=== PATIENT | female | born 1940 | race Caucasian/White ===

== ENCOUNTER → 2017-05-17 | Outpatient (CLI) | payer MEDICARE, BC ==
[~2017-05-17] MED LIST: BUPR-86 PO; CORE3.12 PO; FE FCAP; FERATE PO; FISH1000 PO; LISI-363 PO; LOVA40TA PO; MULT1TAB46; PRED-1 PO; ROSU40 PO; VITA100018 PO
--- NOTE | 2017-05-28 10:17 | RSPPFT ---
DATE OF PROCEDURE: 05/17/17 COMMENTS: Spirometry demonstrates an FEV1 of 1.1 at 57% of predicted, FVC of 2.0 at 79%, FEF 25-75 is 14%. Post-bronchodilator study demonstrated no significant change. Lung volumes demonstrated reduced TLC indicating restriction. Airways resistance is increased. Diffusion capacity is mildly reduced. Flow volume loops indicate an obstructive pattern. IMPRESSION: 1. Moderate obstructive disease. 2. Additional mild restrictive disease. 3. No significant change following use of bronchodilator. 4. Mild loss in diffusion capacity.
== END ==
LOC: PHRSP 10:09
DX: R05 Cough (principal); R06.00 Dyspnea, unspecified
CPT/HCPCS: 94060; 94726; 94729

== ENCOUNTER 2017-08-13 09:34 | Day surgery (SDC) | payer MEDICARE, BC ==
[~2017-08-13] VITALS: Ht 157.5 cm; Wt 57.7 kg
[2017-08-13] VITALS (9 sets, daily range): BP systolic 175–198; BP diastolic 80–99; PULSE 65–78; RESP 20; TEMP 97.7–98.2; O2SAT 90–99
[2017-08-13] MEDS ORDERED: NIVO1INJ (10:10)
[2017-08-13] MEDS ORDERED: THYR30TA4 (10:10)
[2017-08-13] MEDS ORDERED: VITATAB11 (10:10)
[2017-08-13] MEDS ORDERED: CHOL10008 (10:10)
[2017-08-13] MEDS ORDERED: ROSU1TAB4 PO (10:10)
[2017-08-13] MEDS ORDERED: SODIUM CHLOR 0.9% 1000 ML IV SCH (10:15)
[2017-08-13] MEDS ORDERED: IMPLANTED VASCULAR ACCESS DEVICE/PORT - SODIUM CHLORIDE FLUSH PRN IV FLUSH (10:30)
[2017-08-13] MEDS ORDERED: IMPLANTED VASCULAR ACCESS DEVICE/PORT - SODIUM CHLORIDE FLUSH IV FLUSH SCH (10:30)
[2017-08-13] MEDS ORDERED: DIAZEPAM 5 MG TAB PO ONE (10:45)
[2017-08-13 11:08] LABS: INTERNATIONAL NORMALIZED RATIO 1.1 RATIO; PROTHROMBIN TIME - PATIENT 11.2 SEC (9.8-11.6)
[2017-08-13] MEDS ORDERED: LIDOCAINE HCL 1% 20 ML VIAL ONE (12:35)
[2017-08-13] MEDS ORDERED: MIDAZOLAM HCL 2 MG/2 ML VIAL ONE ×2 (12:56→13:26)
[2017-08-13] MEDS ORDERED: THROMBIN (TOPICAL) 5,000 UNIT VIAL ONE ×2 (13:39→13:59)
[2017-08-13] MEDS ORDERED: LABETALOL HCL 100 MG/20 ML VIAL ONE (13:55)
[2017-08-13] MEDS ORDERED: ONDANSETRON HCL 4 MG/2 ML VIAL ONE (14:02)
--- NOTE | 2017-08-13 14:12 | PD.RAD ---
Post CT Procedure Prog Note Pre Procedure Diagnosis: (1) Renal carcinoma Post Procedure Diagnosis: (1) Renal carcinoma Procedure Date: Aug 13, 2017 Supervising Radiologist: Dante Allen Anesthesia: Conscious Sedation Plan of Activity Patient to Unit: ROPU Patient Condition: Good See PACS Report for procedural detail/treatment Dante Allen MD Aug 13, 2017 14:12
[2017-08-13] MEDS ORDERED: PILL SPLITTER OTHER PRN (14:15)
[2017-08-13] MEDS ORDERED: HYDROmorphone HCL 2 MG TAB PO PRN (14:15)
[2017-08-13] MEDS ORDERED: hydrALAZINE HCL 20 MG/ML VIAL IV ONE (15:30)
[2017-08-13] MEDS ORDERED: MORPHINE SULFATE 2 MG/ML INJ IV PUSH ONE (16:45)
--- NOTE | 2017-08-13 17:05 | RADRPT ---
EXAM DATE/TIME: 08/13/2017 13:08 [facility] COMPARISON: No previous studies available for comparison. INDICATIONS : History of renal cell carcinoma with osseous metastatic disease. Enlarging mixed T7 lesion while emelyn ining osseous lesions are stable. Therefore, biopsy has been requested. SEDATION TIME: 90 minutes BIOPSY SITE: T6 MEDICATION(S): 1.) 3 midazolam (Versed) IV 2.) 150 fentanyl (Sublimaze) DEVICE(S): 1.) 11 gauge On-Control needle MEDICAL HISTORY : Renal cell carcinoma. SURGICAL HISTORY : Nephrectomy, right. ENCOUNTER: Initial ACUITY: 1 day PAIN SCORE: 0/10 LOCATION: Bilateral chest A total of one core specimen(s) were obtained and sent to the laboratory for pathologic evaluation. PROCEDURE: 1. CT guided bone deep biopsy. 2. Conscious sedation with continuous EKG and oximetry monitoring. 3. EKG and oximetry remained stable throughout the procedure. Prior to the procedure informed consent was obtained. Any appropriate prior imaging studies were rev iewed. Using automated exposure control and adjustment of the mA and/or kV according to patient size, radiat ion dose was kept as low as reasonably achievable to obtain optimal diagnostic quality images. DICOM format image data is available electronically for review and comparison. The site was prepped in a sterile fashion. Full sterile technique was used, including cap, mask, neyda rile gloves and gown and a large sterile sheet. Hand hygiene and 2% chlorhexidine and/or betadine/al cohol prep was utilized per protocol for cutaneous antisepsis. The skin and subcutaneous tissues wer e infiltrated with local anesthetic solution. With CT guidance the previously identified target was localized. Biopsy was performed using the presc ribed needle as above. Thrombin infused Gelfoam was injected through the needle in a prolonged contro lled retraction. Adequate hemostasis was obtained with compression at the puncture site. Follow-up CT scan reveals no hemorrhage. The patient tolerated the procedure well and there were no complications. The patient was returned to the Radiology Outpatient Unit in stable condition. CONCLUSION: Uncomplicated CT guided biopsy. Dante Allen MD on August 13, 2017 at 17:01 Board Certified Radiologist. This report was verified electronically.
== END 2017-08-13 18:10 | disposition short-term general hospital (02) ==
LOC: HRAD 09:34 → HRIP 09:37 → HRAD 18:10
PROVIDERS: ATTEND Internal Medicine Hematology
DX: C79.51 Secondary malignant neoplasm of bone (principal); C64.9 Malignant neoplasm of unspecified kidney, except renal pelvis; I12.9 Hypertensive chronic kidney disease with stage 1 through stage 4 chronic kidney disease, or unspecified chronic kidney disease; N18.9 Chronic kidney disease, unspecified; E78.5 Hyperlipidemia, unspecified; D64.9 Anemia, unspecified; I31.3 Pericardial effusion (noninflammatory)
CPT/HCPCS: 20225; 77012; 85610; 85730; 88307; 88311; 88341; 88342; 99152; 99153; J0360; J2250; J2270; J2405; J3010

== ENCOUNTER 2017-08-13 18:27 | Emergency (ER) | payer MEDICARE, BC ==
[~2017-08-13 18:27] MED LIST changes: +CHOL10008; +NIVO1INJ; +ROSU1TAB4 PO; +THYR30TA4; +VITATAB11
[2017-08-13 18:30] VITALS: BP 186/84; PULSE 73; RESP 15; TEMP 98; O2SAT 98
[2017-08-13 18:33] VITALS: BP 175/82; PULSE 75; RESP 16; TEMP 97.4
--- NOTE | 2017-08-13 18:59 | PD ---
HPI Chief Complaint: Pain: Acute or Chronic Time Seen by Provider: 18:43 Travel History International Travel<30 days: No Contact w/Intl Traveler<30days: No Traveled to known affect area: No History of Present Illness HPI 77-year-old female complains of upper back pain. Patient has history of lung cancer and metastatic kidney cancer. Patient status post CT-guided thoracic spine T6 biopsy this afternoon. Patient states that she is not having pain upper back post procedure. Patient was sent to ED for evaluation. Patient states the pain is sharp pain localized to the upper back area. Patient denies any pain radiation. Patient denies any palpitation or diaphoresis. Patient denies any fever chills cough and congestion. Patient states that the pain is not worse with deep inspiration. On a scale of 1-10 the pain is a 9. Patient was given morphine for pain prior to arriving to the ED. PFSH Past Medical History Cancer: Yes (LUNG, KIDNEY, bone cancer) Cardiovascular Problems: Yes High Cholesterol: Yes Chemotherapy: No Diabetes: No Endocrine: No Genitourinary: Yes Hepatitis: No Immune Disorder: No Musculoskeletal: Yes (Back pain, bone cancer) Neurologic: Yes Psychiatric: No Reproductive: No Respiratory: Yes Immunizations Current: Yes Migraines: Yes Radiation Therapy: No Thyroid Disease: Yes Past Surgical History Abdominal Surgery: No AICD: No Cardiac Surgery: No Genitourinary Surgery: Yes (RIGHT NEPHRECTOMY) Gynecologic Surgery: Yes ( 1975) Joint Replacement: No Pacemaker: No Thoracic Surgery: No Social History Tobacco Use: No Substance Use: No Allergies-Medications (Allergen,Severity, Reaction): Coded Allergies: ferrous fumarate (Unverified Allergy, Unknown, 08/13/17) ferrous sulfate (Unverified Allergy, Unknown, 08/13/17) ferumoxytol (Unverified Allergy, Unknown, 08/13/17) iron (Unverified Allergy, Unknown, 08/13/17) multivitamin infusion, adult no.4 with vitamin K (Unverified Allergy, Unknown, 08/13/17) multivitamin with iron,other minerals (Unverified Allergy, Unknown, ) Reported Meds & Prescriptions Reported Meds & Active Scripts Active Reported Opdivo (Nivolumab) 40 Mg/4 Ml Inj Vitamin B Complex (B-Complex Vitamins) 1 Tab Vitamin D3 (Cholecalciferol) 1,000 Unit Cap 1,000 Units DAILY Rosuvastatin (Rosuvastatin Calcium) 5 Mg Tab 5 Mg PO DAILY Thyroid (Thyroid,Pork) 30 Mg Tablet Review of Systems General / Constitutional: No: Fever Eyes: No: Visual changes HENT: No: Headaches Cardiovascular: No: Chest Pain or Discomfort Respiratory: No: Shortness of Breath Gastrointestinal: No: Abdominal Pain Genitourinary: No: Dysuria Musculoskeletal: No: Pain Skin: No Rash Neurologic: No: Weakness Psychiatric: No: Depression Endocrine: No: Polydipsia Hematologic/Lymphatic: No: Easy Bruising Physical Exam Narrative GENERAL: Well-nourished, well-developed patient. SKIN: Focused skin assessment warm/dry. HEAD: Normocephalic. EYES: No scleral icterus. No injection or drainage. NECK: Supple, trachea midline. No JVD or lymphadenopathy. CARDIOVASCULAR: Regular rate and rhythm without murmurs, gallops, or rubs. RESPIRATORY: Breath sounds equal bilaterally. No accessory muscle use. GASTROINTESTINAL: Abdomen soft, non-tender, nondistended. MUSCULOSKELETAL: No cyanosis, or edema. BACK: Patient has moderate tenderness on palpation around the biopsy site of the upper back, without obvious deformity. Mild soft tissue swelling noted. No ecchymosis noted. No active bleeding. No CVA tenderness. Data Data Last Documented VS Vital Signs Date Time Temp Pulse Resp B/P (MAP) Pulse Ox O2 Delivery O2 Flow Rate FiO2 08/13/17 18:33 97.4 75 16 175/82 (113) 08/13/17 18:30 98 Orders Orders Chest, Single Ap (08/13/17 18:51) Ed Discharge Order (08/13/17 20:20) MDM Medical Decision Making Medical Screen Exam Complete: Yes Emergency Medical Condition: Yes Interpretation(s) Last Impressions Chest X-Ray 08/13/17 0237 Signed Impressions: Service Date/Time: Sunday, August 13, 2017 19:06 - CONCLUSION: 1. No pneumothorax. Cardiomegaly. Znmakr-q-Npud in superior vena cava. Mike Garcia MD Differential Diagnosis Differential diagnosis including hematoma, bone pain, hemopneumothorax. Narrative Course 77-year-old female with upper back pain. Status post thoracic spine biopsy for metastatic kidney CA this afternoon. Diagnosis Primary Impression: Back pain Qualified Codes: M54.6 - Pain in thoracic spine Patient Instructions: General Instructions Additional Instructions: Tylenol for pain. Follow-up with personal physician. Return if worse. Med/Other Pt SpecificInfo: No Change to Meds Disposition: 01 DISCHARGE HOME Condition: Stable Javi Banuelos MD Aug 13, 2017 18:59
--- NOTE | 2017-08-13 19:54 | RADRPT ---
EXAM DATE/TIME: 08/13/2017 19:06 [facility] COMPARISON: No previous studies available for comparison. INDICATIONS : Upper back pain. Post spine biopsy today. MEDICAL HISTORY : Renal cell carcinoma. SURGICAL HISTORY : Nephrectomy, right. Infusaport. ENCOUNTER: Initial ACUITY: 1 day PAIN SCORE: 10/10 LOCATION: Bilateral chest FINDINGS: A single view of the chest demonstrates right Yqicty-n-Yqpy in superior vena cava. Minimal basilar at electasis. Cardiomegaly. No significant effusion. No pneumothorax. Postop partial resection left lung . CONCLUSION: 1. No pneumothorax. Cardiomegaly. Nbulpw-q-Pwfo in superior vena cava. Mike Garcia MD on August 13, 2017 at 19:51 Board Certified Radiologist. This report was verified electronically.
== END 2017-08-13 20:54 | disposition home or self-care (01) ==
LOC: NEPD 18:27
DX: M54.6 Pain in thoracic spine (principal); C34.90 Malignant neoplasm of unspecified part of unspecified bronchus or lung; C79.00 Secondary malignant neoplasm of unspecified kidney and renal pelvis
CPT/HCPCS: 71045; 99283

== ENCOUNTER → 2017-12-27 | Outpatient (CLI) | payer MEDICARE, BC ==
[~2017-12-27] MED LIST changes: -BUPR-86 PO; -CORE3.12 PO; -FE FCAP; -FERATE PO; -FISH1000 PO; -LISI-363 PO; -LOVA40TA PO; -MULT1TAB46; -PRED-1 PO; -ROSU40 PO; -VITA100018 PO
[2017-12-27 08:36] LABS: AUTOMATED NEUTROPHIL # 4.3 TH/MM3 (1.8-7.7); BASOPHIL % 0.4 % (0.0-2.0); EOSINOPHIL # 0.1 TH/MM3 (0-0.4); EOSINOPHIL % 1.6 % (0.0-4.0); HEMATOCRIT 35.5 % (35.0-46.0); HEMOGLOBIN 11.6 GM/DL (11.6-15.3); LYMPH % 8.2 % (9.0-44.0); LYMPHOCYTE # 0.5 TH/MM3 (1.0-4.8); MEAN CELL VOLUME 88.4 FL (80.0-100.0); MEAN CORPUSCULAR HEMOGLOBIN 28.8 PG (27.0-34.0); MEAN CORPUSCULAR HGB CONC 32.5 % (32.0-36.0); MEAN PLATELET VOLUME 8.9 FL (7.0-11.0); MONO % 11.9 % (0.0-8.0); MONOCYTE # 0.7 TH/MM3 (0-0.9); NEUT % 77.9 % (16.0-70.0); PLATELET COUNT 228 TH/MM3 (150-450); RED BLOOD COUNT 4.02 MIL/MM3 (4.00-5.30); RED CELL DISTRIBUTION WIDTH 14.4 % (11.6-17.2); WHITE BLOOD COUNT 5.6 TH/MM3 (4.0-11.0)
[2017-12-27 08:49] LABS: PROTHROMBIN TIME - PATIENT 10.6 SEC (9.8-11.6)
[2017-12-27 09:02] LABS: BILIRUBIN, URINE NEG (NEG); BLOOD, URINE SMALL (NEG); GLUCOSE,URINE NEG (NEG); KETONE, URINE NEG (NEG); NITRITE,URINE NEG (NEG); SQUAMOUS EPITHELIAL CELL URINE 2 /hpf (0-5); URINE COLOR YELLOW (YELLW/STRAW); URINE LEUKOCYTE ESTERASE MOD (NEG)
[2017-12-27 09:16] LABS: ALBUMIN 3.7 GM/DL (3.4-5.0); BICARBONATE 25.9 MEQ/L (21.0-32.0); BLOOD UREA NITROGEN 29 MG/DL (7-18); CALCIUM 9.1 MG/DL (8.5-10.1); CHLORIDE 105 MEQ/L (98-107); CREATININE 1.89 MG/DL (0.50-1.00); GLOMERULAR FILTRATION RATE 26 ML/MIN (>89); GLUCOSE,FASTING 81 MG/DL (74-99); SODIUM (NA) 140 MEQ/L (136-145)
[2017-12-27 09:18] LABS: AST (GOT) 14 U/L (15-37)
[2017-12-27 09:21] LABS: ALKALINE PHOSPHATASE 95 U/L (45-117); ALT (GPT) 13 U/L (10-53); TOTAL BILIRUBIN ADULT 0.4 MG/DL (0.2-1.0); TOTAL PROTEIN 7.2 GM/DL (6.4-8.2)
--- NOTE | 2017-12-27 09:56 | RADRPT ---
EXAM DATE: 12/27/2017 9:04 AM EDT AGE/SEX: 77 years / Female INDICATIONS: Evaluate for pneumonia, pneumothorax or communicable disease. Pre surgery back surgery CLINICAL DATA: This is the patient's initial encounter. Patient reports that signs and symptoms have been present for 1 day and indicates a pain score of 0/10. MEDICAL/SURGICAL HISTORY: Hypertension. Cardiovascular disease. Renal disease. Right kidney removed . COMPARISON: [facility], CT SIMULATION, 09/04/2017. . FINDINGS: No new focal pleural or parenchymal opacities. Stable right IJ Ekobqa-c-Jjvh with tubing in the proxi mal SVC. Surgical clips in the region of the AP window and left axilla. Cardiac silhouette remains mi ldly enlarged. Redemonstration of osseous abnormality involving the right lower ribs. There is a merle re T6 compression fracture similar to prior PET/CT exam. CONCLUSION: 1. Redemonstration of T6 osseous metastasis. 2. Compensated cardiomegaly. 3. No acute abnormality or significant interval change. Electronically signed by: Dante Allen MD 12/27/2017 9:55 AM EDT
--- NOTE | 2017-12-27 19:20 | EKG ---
Date Performed: 12/27/2017 Time Performed: 08:12:25 PTAGE: 77 years EKG: Sinus rhythm POSSIBLE LEFT ATRIAL ENLARGEMENT POSSIBLE ANTERIOR MYOCARDIAL INFARCTION, OF INDETERMINATE AGE ABNOR MAL ECG PREVIOUS TRACING :02/07/2013 @13.34 Since the previous tracing, no significant change noted DOCTOR: Momo Torres Interpretating Date/Time 12/27/2017 19:20:15
== END ==
LOC: CPRE 07:44
PROVIDERS: ATTEND Neurological Surgery
DX: Z01.810 Encounter for preprocedural cardiovascular examination (principal); Z01.811 Encounter for preprocedural respiratory examination; Z01.812 Encounter for preprocedural laboratory examination; C79.51 Secondary malignant neoplasm of bone; R94.31 Abnormal electrocardiogram [ECG] [EKG]; R82.90 Unspecified abnormal findings in urine
CPT/HCPCS: 36415; 71046; 80053; 81001; 85025; 85610; 85730; 87086; 87640; 87641; 93005

== ENCOUNTER 2018-01-04 05:57 | Inpatient (IN) ==
[2018-01-04] MEDS ORDERED: Chlorhexidine Gluconate 2% 1 Pack (2 Cloths) TOPICAL SCH (06:30)
[2018-01-04] MEDS ORDERED: Metoprolol Tartrate 25 MG Tablet PO SCH (06:30)
[2018-01-04] MEDS ORDERED: Vancomycin Inj 1 GM/200 ML PIGGYBACK IV.SIG PRN (06:45)
[2018-01-04] MEDS ORDERED: Sodium Chlor 0.9% Inj 500 ML IV.SIG SCH (07:00)
[2018-01-04] MEDS ORDERED: Sod Chloride 0.9% Inj 1,000 ML IV.SIG SCH (07:00)
[2018-01-04] MEDS ORDERED: Propofol Inj 500 MG/50 ML Vial ONE (07:14)
[2018-01-04] MEDS ORDERED: Artificial Tears Opth Oint 3.5 GM Tube ONE (07:15)
[2018-01-04] MEDS ORDERED: Bupivacaine/Epinephrine 0.5% Inj 50 ML Vial ONE (07:28)
[2018-01-04] MEDS ORDERED: Heparin - SQ 10,000 UNITS/ML Vial SQ ONE (07:28)
[2018-01-04] MEDS ORDERED: Thrombin Topical Soln 5,000 UNIT Vial TOPICAL ONE (07:29)
[2018-01-04] MEDS ORDERED: ceFAZolin 2 GM Premix Inj 2 GM/50 ML PIGGYBACK IV.SIG ONE ×2 (07:29→13:14)
[2018-01-04] MEDS ORDERED: Gelatin Size 100 Topical Foam ONE (07:29)
[2018-01-04 07:58] LABS: Bilirubin,Urine Negative (Negative); Clarity,Urine Clear (Clear); Color,Urine Straw (Yellw/Straw); Glucose,Urine (UA) Negative (Negative); Leukocyte Esterase,Urine Negative (Negative); Nitrite,Urine Negative (Negative); Specific Gravity,Urine 1.009 (1.002-1.035)
[2018-01-04] MEDS ORDERED: Aluminum/Magnesium/Simethacone Susp 30 ML UDC PO PRN (09:01)
[2018-01-04] MEDS ORDERED: Labetalol HCl Inj 100 MG/20 ML Vial IV.PUSH PRN (09:01)
[2018-01-04] MEDS ORDERED: Bisacodyl 10 MG Supp RECTAL PRN (09:01)
[2018-01-04] MEDS ORDERED: Naloxone Inj 0.4 MG/ML Vial IV.PUSH PRN (09:10)
[2018-01-04] MEDS ORDERED: HYDROmorphone PCA Inj 6 MG/30 ML PCA.VIAL PCA PRN (09:10)
[2018-01-04 09:12] LABS: ABG Base Excess -0.6 mmol/L (-2-2); ABG PCO2 34 mmHg (38-42); ABG PO2 424 mmHG (61-120)
[2018-01-04] MEDS ORDERED: Tranexamic Acid Inj 1,000 MG/10 ML Ampul ONE (10:56)
[2018-01-04 11:12] LABS: ABG Base Excess -3.3 mmol/L (-2-2); ABG PCO2 32 mmHg (38-42); ABG PO2 280 mmHG (61-120)
[2018-01-04] MEDS ORDERED: Lidocaine PF 1% Inj 5 ML Syringe INFILTRATN ONE (12:00)
[2018-01-04] MEDS ORDERED: Phenylephrine/NS 1000 MCG/10ML Syringe IV.PUSH ONE (12:00)
[2018-01-04] MEDS ORDERED: Glycopyrrolate Inj 1 MG/5 ML Syringe IV.PUSH ONE (12:00)
[2018-01-04 12:46] LABS: ABG Base Excess -5.5 mmol/L (-2-2); ABG PCO2 35 mmHg (38-42); ABG PO2 294 mmHG (61-120)
[2018-01-04] MEDS ORDERED: Sodium Bicarbonate 8.4% Inj 50 MEQ/50 ML Syringe ONE (12:49)
[2018-01-04 12:55] LABS: Hematocrit 34.7 % (35.0-46.0); Hemoglobin 11.7 gm/dL (11.6-15.3); Mean Corpuscular HGB Conc 33.7 % (32.0-36.0); Mean Corpuscular Hemoglobin 30.2 pg (27.0-34.0); Mean Corpuscular Volume 89.6 fL (80.0-100.0); Mean Platelet Volume 8.8 fL (7.0-11.0); Platelet Count 152 th/mm3 (150-450); Red Blood Count 3.88 mil/mm3 (4.00-5.30); Red Cell Distribution Width 14.4 % (11.6-17.2); White Blood Count 5.1 th/mm3 (4.0-11.0)
[2018-01-04] MEDS ORDERED: Morphine Inj 4 MG/ML Vial ONE (14:25)
[2018-01-04] MEDS ORDERED: fentaNYL Citrate Inj 100 MCG/2 ML Ampul ONE (14:25)
[2018-01-04] MEDS: Sod Chloride 0.9% Inj 1,000 ML IV.CONT SCH ×2 (14:32→20:18)
--- NOTE | 2018-01-04 14:48 | P.CONCC ---
History of Present Illness Service: Critical care medicine Consult date: 01/03/18 Requesting Physician: Odell Dela Cruz Reason for Consult: Critical care management Primary Care Provider: Young Swanson DO Family Provider: Young Swanson DO Chief Complaint: Back pain History of Present Illness: This is a 77-year-old female. Date of admission 01/04/2018. Date of consultation 01/04/2018. 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 Richards 2012, renal cell carcinoma with metastases to the spine undergoing radiation therapy. She is on Nivolumab every 2 weeks for her renal cell carcinoma. She also has history of chronic pain syndrome, hypertension, hyperlipidemia, sinus bradycardia, gastroesophageal reflux disease and hypothyroidism. Patient was seen by Dr. Dela Cruz for pain/unstable T-spine as an outpatient. Today, the patient underwent a T6 laminectomy with ORIF of fractures T4 through 8 with internal fixation using transpedicular screws and rods. 3000 cc crystalloid. 3 units PRBCs. 850 EBL. 800 cc urine output. Patient has been extubated is currently seen in PACU he was medically stable in sinus bradycardia. Review of Systems unobtainable due to mental status PMFSH - History History Provided By: Patient - Medical History Medical History: Medical History (Last Reviewed 01/04/18 @ 14:43 by Mariano Chacon MD) Bradycardia Chronic GERD Chronic pain Hypertension Hypothyroidism Metastasis Port catheter in place Renal adenocarcinoma Small cell lung cancer, left lower lobe - Surgical History Surgical History: Surgical History (Last Updated 01/04/18 @ 14:43 by Mariano Chacon MD) History of total knee arthroplasty History of lobectomy of lung History of nephrectomy Previous back surgery - Family History Family History: Family History (Last Updated 01/04/18 @ 14:43 by Mariano Chacon MD) Other Family history of lung cancer - Tobacco History Second Hand Smoke Exposure: Yes Tobacco Use In Past 30 Days: No Smoking Status: Never smoker - Alcohol History How Often Do You Have a Drink Containing Alcohol: Never - Substance Use History Substance History: No History of Abuse - Travel History History of Recent Travel: No Recent Travel in the [place] Within the Last 8 Weeks: No Recent Travel Out of the Country Within the Last 8 Weeks: No Medications and Allergies Active Medications: Active Medications Acetaminophen (Tylenol) 650 mg PO Q4H PRN PRN Reason: TEMPERATURE > 101.5 F Al Hydrox/Mg Hydrox/Simethicone (Mag-Al Plus Susp Liq) 30 ml PO Q6H PRN PRN Reason: DYSPEPSIA Al Hydroxide/Mg Hydroxide (Milk Of Magnesia Liq) 30 ml PO Q12H PRN PRN Reason: Mild Constipation Albuterol (Albuterol Neb (Prn)) 2.5 mg NEB Q4HR NEB PRN PRN Reason: WHEEZING Amlodipine Besylate (Norvasc) 2.5 mg PO BID [facility] Bisacodyl (Dulcolax Supp) 10 mg RECTAL DAILY PRN PRN Reason: SEVERE CONSITIPATION Carvedilol (Coreg) 12.5 mg PO BID [facility] Chlorhexidine Gluconate (Chlorhexidine 2% Cloth) 3 pack TOPICAL [employer] SUPERVISOR [facility] Stop: 01/07/18 06:27 Last Admin: 01/04/18 07:00 Dose: 3 pack Diphenhydramine HCl (Benadryl Inj) 25 mg IV.PUSH Q6H PRN PRN Reason: for itching Vancomycin/Sodium Chloride (Vancomycin Inj) 1 gm in 200 mls @ 200 mls/hr IV.SIG [employer] SUPERVISOR PRN PRN Reason: GIVE PRE-OP [employer] SUPERVISOR TO OR Cefazolin Sodium/Dextrose (Ancef 2 Gm Premix Inj) 2 gm in 50 mls @ 100 mls/hr IV.SIG Q8H [facility] Stop: 01/05/18 02:29 Sodium Chloride (Ns Inj) 1,000 mls @ 100 mls/hr IV.CONT .Q10H [facility] Hydromorphone/Sodium Chloride (Dilaudid Wafer Slicer Inj) 6 mg in 30 mls @ 0 mls/hr [employer]ETY OFFICER UNSCH PRN PRN Reason: per CAMPUS SAFETY OFFICER parameters Labetalol HCl (Trandate Inj) 10 mg IV.PUSH Q1H PRN PRN Reason: SYS BP GREATER THAN 170 MMHG Lactulose (Lactulose Liq) 30 ml PO DAILY PRN PRN Reason: SEVERE CONSITIPATION Metoprolol Tartrate (Lopressor) 25 mg PO [employer] SUPER[employer] [facility] Stop: 01/07/18 06:27 Last Admin: 01/04/18 07:38 Dose: Not Given Naloxone HCl (Narcan Inj) 0.4 mg IV.PUSH PRN PRN PRN Reason: SEE LABEL COMMENTS Non-Formulary Medication (Nivolumab) 1 mg/kg IV.SIG DIRECTED [facility] Pantoprazole Sodium (Protonix) 40 mg PO DAILY [facility] Povidone Iodine (Betadine 5% Antisepsis Kit) 1 applicatio EACH NARE [employer] SUPERVISOR [facility] Stop: 01/07/18 06:27 Last Admin: 01/04/18 07:30 Dose: 1 applicatio Senna/Docusate Sodium (Sandy-Colace) 1 tab PO BID [facility] Sennosides (Senokot) 17.2 mg PO Q12H PRN PRN Reason: Moderate Constipation Thyroid ([place] Thyroid) 60 mg PO DAILY@0600 [facility] Vitamin D (Vitamin D3) 1,000 unit PO BID [facility] Allergies Allergy/AdvReac Type Severity Reaction Status Date / Time ferrous fumarate Allergy Unknown Irritation Unverified 12/27/17 11:10 ferrous sulfate Allergy Unknown Irritation Verified 01/04/18 07:37 ferumoxytol Allergy Unknown Irritation Verified 01/04/18 07:37 iron Allergy Unknown Irritation Verified 01/04/18 07:37 multivitamin infusion, adult Allergy Unknown Irritation Verified 01/04/18 07:37 no.4 with vitamin K multivitamin with iron,other Allergy Unknown Irritation Verified 01/04/18 07:36 minerals Home Medications Medication Instructions Recorded Confirmed Type amlodipine 2.5 mg PO BID 12/27/17 01/04/18 History carvedilol 12.5 mg PO BID 12/27/17 01/04/18 History nivolumab [Opdivo] 1 mg/kg IV DIRECTED 12/27/17 01/04/18 History tramadol 50 mg PO Q4-6H PRN 12/27/17 01/04/18 History cholecalciferol (vitamin D3) 1,000 unit PO BID 01/04/18 01/04/18 History [Vitamin D3] thyroid (pork) [[place] Thyroid] 60 mg PO DAILY 01/04/18 01/04/18 History Physical Exam Vital signs: Vital Signs 01/04/18 07:08 Temperature 97.8 F Pulse Rate 62 Respiratory Rate 18 Blood Pressure 154/72 H Pulse Oximetry 99 Intake & Output 01/03/18 01/04/18 01/04/18 18:59 06:59 18:59 Intake Total 4200 / 4200 Output Total 800 / 800 Balance 3400 / 3400 Weight 54.8 kg 54.8 kg Intake: Anesthesia Amount 3000 / 3000 Intake (Blood Product) Amt 1200 / 1200 Rbc As-3 Leukoreduced Unit 400 / 400 [id number] Rbc As-3 Leukoreduced Unit 400 / 400 [id number] Rbc As-3 Leukoreduced Unit 400 / 400 [id number] Output: Urine 800 / 800 Other: Weight On Admission 54.8 kg Narrative: GENERAL: 77-year-old female currently resting in PACU bed in no acute distress SKIN: Warm and dry. No rash HEAD: Atraumatic. Normocephalic. EYES: Pupils equal and round about 3 mm bilaterally reactive to 2 . No scleral icterus. No injection or drainage. ENT: No nasal bleeding or discharge. Mucous membranes pink and moist. NECK: Trachea midline. No JVD. CARDIOVASCULAR: Tachycardic, RR. S1, S2 predose 4. 2/6 systolic murmur pansternal RESPIRATORY: No accessory muscle use. Clear to auscultation. Breath sounds equal bilaterally. GASTROINTESTINAL: Abdomen soft, non-tender, nondistended. Hepatic and splenic margins not palpable. MUSCULOSKELETAL: Extremities without without signal edema. No obvious deformities. NEUROLOGICAL: Currently somnolent with a Guedel airway in place on simple mask. Withdraws to noxious stimuli bilateral upper and lower extremities. - Urinary Catheter Management Straight Cath placed during this visit: yes, but has since been removed by the nurse Reason for continuing: Not indwelling catheter Insertion date: 01/04/18 Insertion time: 07:27 Removal date: 01/04/18 Removal time: 07:29 Septic Shock Reassessment Septic shock perfusion: reassessment completed Assessment and Plan - Assessment and Plan Plan: Neuro/Psych: Postoperative day #0 T6 laminectomy with ORIF of fractured T4 through 8 with internal fixation using transpedicular screws/rods by Dr. Dela Cruz Chronic pain syndrome Postoperative management per Dr. Dela Cruz. SHUN drain 1 with serosanguineous drainage postop Acetaminophen 650 mg by mouth every 4 hours as needed fever Patient is currently on a hydromorphone drip per Dr. Dela Cruz As an outpatient previously on tramadol 50 mg every 6 hours as needed pain CV: Sinus bradycardia Essential hypertension Hyperlipidemia Continue amlodipine 2.5 mg twice daily for essential hypertension. Currently holding carvedilol 12.5 mg twice daily in light of sinus bradycardia. Currently receiving LR at 30 cc an hour 1 L 1 dose Resp: Nasal cannula to maintain saturations greater than or equal to 92% Incentive spirometry while awake As needed albuterol aerosols every 4 hours as needed dyspnea GI: Gastroesophageal reflux disease Advance diet per neurosurgery Pantoprazole for GI prophylaxis Docusate sodium/senna 1 tablet twice daily for bowel regimen : Remove Meyers catheter Endo: Hypothyroidism Sliding scale insulin if indicated to maintain euglycemia Continue [place] Thyroid 60 mg daily Renal: Monitor urine output Accurate I's and O's Follow BMP, magnesium phosphorus in a.m. Heme: History of renal cell carcinoma stage IV with metastases to the bone History of small cell carcinoma status post left upper lobe lobectomy 2012 Patient is currently on Nivolumab chemotherapy as an outpatient every 2 weeks. Transfuse 3 PRBCs in OR. Follow-up CBC in a.m. ID: Monitor for signs and symptomatology infection Currently on cefazolin 2 g IV every 8 hours 3 dosages per neurosurgery FEN: Replace electrolytes as clinically indicated MSK: PT evaluate and treat Continue cholecalciferol 1000 units twice daily Access -Right radial arterial line day #1 placed in OR 01/04 -Utilize peripheral IV. Central line if indicated Prophylaxis -GI -pantoprazole -DVT -SCD/pharmacological prophylaxis when okay with Dr. Dela Cruz Level 3 consult Code Status: Full code Discussed Condition With: Patient. Anesthesia. 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 CARE plan discussed and all questions answered.
--- NOTE | 2018-01-04 15:18 | XR ---
EXAM DATE: 01/04/2018 3:01 PM EDT AGE/SEX: 77 years / Female INDICATIONS: Post op thoracic surgery. CLINICAL DATA: This is the patient's initial encounter. Patient reports that signs and symptoms have been present for 1 day and indicates a pain score of Nonresponsive. MEDICAL/SURGICAL HISTORY: . Hypertension. Cardiovascular disease. Renal disease. . Right kidne y removed COMPARISON: [facility], CHEST PA & LAT, 12/27/2017. . FINDINGS: There is some parenchymal consolidation the left lower lung. The right lung is grossly clear. The hea rt size is enlarged. There is evidence of recent spinal surgery to the thoracic spine. There is a rig ht-sided central line in place. There is no pneumothorax. Some old healed right-sided rib fractures. CONCLUSION: Parenchymal infiltrate in the left lower lung. This may represent some atelectasis. The right lung is grossly clear. Electronically signed by: Keanu Saeed MD 01/04/2018 3:17 PM EDT
--- NOTE | 2018-01-04 15:57 | P.OP ---
Date of procedure: 01/05/18 Procedure: Open reduction internal fixation of T6 pathological fracture, T6 bilateral laminectomy with decompression of the spinal cord and microsurgical resection of metastatic renal cell carcinoma, T4-T8 segment and instrumented fixation using transpedicular screws and rods, T4 through T8 posterolateral fusion using autologous bone and demineralized bone matrix, microsurgical dissection Anesthesia: FELICIA Surgeon: Odell Dela Cruz MD Internal Control Manager: Laura Chiang Estimated blood loss (mL): 800 Pathology: other (Carcinoma) Operation and Findings: Ms Fiore is a 77 year-old female who presented with severe intractable mechanical back pain and a thoracic myelopathy related to a pathological spinal fracture and metastatic renal cell carcinoma. She failed medical nonsurgical management. A surgical decompression with reduction of the fracture and arthrodhesis were indicated as the most appropriate treatment. The [id number] details of the procedure, indications, alternatives, risks and potential complications were fully discussed with the patient. The patient fully understood. All questions were answered. No guarantees were given. The patient voiced requesting the procedure and provided informed consents. The patient had been offered the alternative of delaying the procedure and continuing with nonsurgical management. DETAILS OF THE SURGICAL PROCEDURE Prior to the procedure,the surgical incision was marked in the preoperative surgical holding room, and the procedure, risks, and potential complications revisited with the patient. Placement of electrodes for intraoperative neurophysiological monitoring was completed. The patient was taken to the operative room, and following induction of general anesthesia, endotracheal intubation was performed. A Meyers catheter bilateral Amrik and sequential compression devices were placed and kept throughout the procedure. The patient was carefully rolled into the prone position over a Marcello table with a gell rolls. All pressure points were carefully padded with eggcrate mattress. The eyes were tapped shut after ointment was applied by the anesthesiologist to prevent corneal abrasion. A Rahel hugger was placed over the expossed lower body to maintain control of the core body temperature. The electrophysiological team placed the needles and electrodes in their proper location and baseline SSEP's and motor evoked potentials were registered. The thoracic lumbar region was prepped and draped in the usual sterile fashion. A localizing X-ray was performed with the C-arm and the fracture was localized. Two paramedian skin incisions were outlined from the spinous process of T4 down to T8 Surgical Approach The skin incisions were made with a #10 blade. Dissection was carried out through the thoracolumbar fascia with a Bovie. The landmarks of TT4 down to T8 were exposed in preparation for the insertion of the screws Instrumental fixation At this point in the procedure, placement of bilateral transpedicular screws was necessary for stabilization of the spine. The levels were carefully marked with a TPS and bilateral transpedicular screws were placed using a standard fashion. Initially, the entry point for the screw was selected anatomically at the junction of the facet, with the transverse process, and the pars interarticularis. This was started with a Giamshetti needle followed by the use of a sneed wire. Finally, bilateral transpedicular sneed wires were carefully placed bilaterally at T4 down to T8 under fluoroscopic visualization. It was possibe to place a solid screw at T6. An appropriate purchase was achieved with all other screws. The position of each screw was assessed anatomically with an AP, lateral, oblique Xrays. An intraoperative scan view of the spine was then performed using the iso-centric c-arm. Each lumbar screw was then assessed electrophysiologically with a nerve stimulator. Open reduction of the fracture Once all screws were in position, the operative microscope was draped in the usual sterile fashion and brought to the field. The rest of the surgical procedure was performed using microdissection technique with the exception of the closure. Under the operative microscope, a laminectomy was performed at T6. It was necessary to drill the facet entrance to the pedicle in order to allow access to the anterior surface of the thecal sac without retraction on the spinal cord. E pidural veins were coagulated with the bipolar and incised with the microscissors. The retropulsed tissue was assessed with an nerve hook. They were causing significant compression of the dural sac. A shoe impactor was placed on the anterior epidural space and the bone fragments were impacted back into the vertebral body under fluoroscopic guidance. An proper decompression was achieved using this technique. Posterolateral fusion Then, the lateral gutters of the spine, facets and transverse processes were carefully decorticated with a TPS drill in preparation for the posterior lateral fusion. The incision was thoroughly irrigated with antibiotic solution. The posterolateral fusion was performed by carefully packing the gutters of the spine with a autologous iliac crest bone graft combined with demineralized bone matrix. Completion of the Procedure The rods were brought to the field. Sequential application of the cap was achieved which allowed for further correction of the kyphosis. Final tightening of all screws was achieved with a torque wrench. The incision was thoroughly irrigated with several liters of antibiotic solution. The decompression was reassessed with an nerve hook and found to be appropriate. A 10 mm Marcello- Manjarrez drain was left on the epidural space and was then externalized through a separate stab incision. The incision was then closed in layers. 0 Vicryl with interrupted sutures were used to close the thoracolumbar fascia. The superficial fascia was closed with 0 Vicryl sutures. Three-0 Vicryl was used to close the subcutaneous tissue. The skin was closed with 4-0 running subcuticular Vicryl. Dermabond was applied to the skin. The drain was secured 3- 0 nylon. At the end of the procedure the sponges, needles, and instrument counts were all correct. Estimated blood loss was 800 cc's. No complications occurred. The patient received prophylactic antibiotics. The patient was then extubated and transferred to the recovery room in stable condition. The entire procedure was performed using electrophysiological monitor of the electromyogram, evoked potential and sphincters. No intraoperative abnormalities were detected.
[2018-01-04] MEDS ORDERED: Sod Chloride 0.9% Inj 1,000 ML IV.SIG ONE (16:13)
[2018-01-04 18:01] LABS: Hematocrit 35.1 % (35.0-46.0); Hemoglobin 11.9 gm/dL (11.6-15.3); Mean Corpuscular HGB Conc 33.9 % (32.0-36.0); Mean Corpuscular Hemoglobin 30.5 pg (27.0-34.0); Mean Platelet Volume 8.7 fL (7.0-11.0); Platelet Count 137 th/mm3 (150-450); Red Cell Distribution Width 14.7 % (11.6-17.2); White Blood Count 14.9 th/mm3 (4.0-11.0)
[2018-01-04 18:21] LABS: Albumin 2.5 g/dL (3.4-5.0); Magnesium 1.8 mg/dL (1.5-2.5)
[2018-01-04 18:39] LABS: Calcium 7.1 mg/dL (8.5-10.1); Carbon Dioxide 23.7 meq/L (21.0-32.0); Potassium 4.5 meq/L (3.5-5.1)
[2018-01-04 19:08] LABS: Total Protein 4.8 g/dL (6.4-8.2)
--- NOTE | 2018-01-04 19:29 | XR ---
EXAM DATE: 01/04/2018 7:24 PM EDT AGE/SEX: 77 years / Female INDICATIONS: ORIF T6 with fusion T4 to T8 with screws and rods placement. CLINICAL DATA: This is the patient's subsequent encounter. Patient reports that signs and symptoms h ave been present for 4 - 6 days and indicates a pain score of Nonresponsive. MEDICAL/SURGICAL HISTORY: . Hypertension. Cardiovascular disease. Renal disease . Right kidney removed . COMPARISON: POI, MR THORACIC SPINE W AND W/O CONTRAST, 11/27/2017. . FINDINGS: Extensive surgical hardware is noted within the thoracic spine extending from T4 through T8 status po st fusion of severe compression fracture at T6 CONCLUSION: Extensive fusion hardware extending from T4 through T8 in good position. Electronically signed by: Nino Cuevas MD 01/04/2018 7:28 PM EDT
[2018-01-04] MEDS: Carvedilol 12.5 MG Tablet PO SCH ×2 (20:14→20:52)
[2018-01-04] MEDS: Senna/Docusate Sodium 8.6/50 MG Tablet PO SCH ×2 (20:14→20:52)
[2018-01-04] MEDS: amLODIPine 5 MG Tablet PO SCH ×2 (20:14→20:52)
[2018-01-04] MEDS: ceFAZolin 2 GM Premix Inj 2 GM/50 ML PIGGYBACK IV.SIG SCH (23:06)
[2018-01-05] MEDS: Sod Chloride 0.9% Inj 1,000 ML IV.CONT SCH ×4 (00:50→16:02)
[2018-01-05] MEDS: ceFAZolin 2 GM Premix Inj 2 GM/50 ML PIGGYBACK IV.SIG SCH ×2 (06:05→14:34)
--- NOTE | 2018-01-05 08:57 | P.PNCC ---
Subjective Subjective Remarks/Hospital Course: This is a 77-year-old female. Date of admission 01/04/2018. Date of consultation 01/04/2018. 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 Richards 2012, renal cell carcinoma with metastases to the spine undergoing radiation therapy. She is on Nivolumab every 2 weeks for her renal cell carcinoma. She also has history of chronic pain syndrome, hypertension, hyperlipidemia, sinus bradycardia, gastroesophageal reflux disease and hypothyroidism. Patient was seen by Dr. Dela Cruz for pain/unstable T-spine as an outpatient. Today, the patient underwent a T6 laminectomy with ORIF of fractures T4 through 8 with internal fixation using transpedicular screws and rods. 3000 cc crystalloid. 3 units PRBCs. 850 EBL. 800 cc urine output. Patient has been extubated is currently seen in PACU he was medically stable in sinus bradycardia SUBJECTIVE: 01/05: Afebrile. 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 Chlorpromazine order. Making urine. A.m. laboratories pending. Pleasantly confused. Objective Vital Signs / I&O: Vital Signs 01/04/18 14:00 01/04/18 14:15 01/04/18 14:30 Temperature 97.0 F L 97.0 F L 97.0 F L Pulse Rate 60 57 L 57 L Respiratory Rate 12 12 12 Blood Pressure 116/66 126/65 130/75 Pulse Oximetry 100 100 100 01/04/18 14:45 01/04/18 15:00 01/04/18 15:30 Temperature 97.0 F L 97.0 F L 97.0 F L Pulse Rate 57 L 54 L 61 Respiratory Rate 12 12 12 Blood Pressure 151/71 H 126/63 138/71 Pulse Oximetry 100 100 100 01/04/18 15:45 01/04/18 16:00 01/04/18 16:15 Temperature 97.4 F L 97.4 F L 97.4 F L Pulse Rate 60 57 L 58 L Respiratory Rate 12 12 12 Blood Pressure 136/74 142/69 H 134/57 L Pulse Oximetry 100 100 100 01/04/18 16:30 01/04/18 16:45 01/04/18 17:00 Temperature 97.4 F L 96.3 F L Pulse Rate 66 59 L Respiratory Rate 12 Blood Pressure 132/72 144/69 H Pulse Oximetry 100 100 100 01/04/18 18:34 01/04/18 19:45 01/04/18 20:00 Temperature 97.1 F L 97.5 F L Pulse Rate 69 74 Respiratory Rate 17 Blood Pressure 131/70 128/66 Pulse Oximetry 100 100 01/04/18 20:16 01/04/18 21:41 01/05/18 00:00 Temperature 97.1 F L Pulse Rate 68 Respiratory Rate 16 12 Blood Pressure 148/73 H Pulse Oximetry 100 100 01/05/18 01:39 01/05/18 04:00 01/05/18 05:00 Temperature 97.3 F L Pulse Rate 72 Respiratory Rate 13 13 22 Blood Pressure 164/87 H Pulse Oximetry 100 Intake & Output 01/04/18 01/05/18 01/05/18 18:59 06:59 18:59 Intake Total 4200 / 4200 1050 / 1050 550 / 550 Output Total 850 / 850 Balance 3350 / 3350 1050 / 1050 550 / 550 Weight 54.8 kg Intake: IV 1050 / 1050 550 / 550 NS Inj 1,000 ML @ 100 mls/hr IV 1000 / 1000 .CONT .Q10H [facility] Rx#:[id number] Ancef 2 GM Premix Inj 2 gm In 50 / 50 50 / 50 50 ml @ 100 mls/hr IV.SIG Q8H [facility] Rx#:[id number] Anesthesia Amount 3000 / 3000 Intake (Blood Product) Amt 1200 / 1200 Rbc As-3 Leukoreduced Unit 400 / 400 [id number] Rbc As-3 Leukoreduced Unit 400 / 400 [id number] Rbc As-3 Leukoreduced Unit 400 / 400 [id number] Output: Urine 800 / 800 Urine Amount (Catheter) 50 / 50 Indwelling Urethral Catheter 50 / 50 Other: Date of Last Bowel Movement 01/03/18 Weight On Admission 54.8 kg Result Diagrams: 01/04/18 17:45 01/04/18 17:45 Imaging: ITS Impressions Chest X-Ray 01/04/18 00:00 CONCLUSION: Parenchymal infiltrate in the left lower lung. This may represent some atelectasis. The right lung is grossly clear. Thoracic Spine X-Ray 01/04/18 00:00 CONCLUSION: Extensive fusion hardware extending from T4 through T8 in good position. Objective Remarks: GENERAL: 77-year-old female currently resting in PACU bed in no acute distress SKIN: Warm and dry. No rash HEAD: Atraumatic. Normocephalic. EYES: Pupils equal and round about 3 mm bilaterally reactive to 2 . No scleral icterus. No injection or drainage. ENT: No nasal bleeding or discharge. Mucous membranes pink and moist. NECK: Trachea midline. No JVD. CARDIOVASCULAR: Tachycardic, RR. S1, S2 predose 4. 2/6 systolic murmur pansternal RESPIRATORY: No accessory muscle use. Clear to auscultation. Breath sounds equal bilaterally. GASTROINTESTINAL: Abdomen soft, non-tender, nondistended. Hepatic and splenic margins not palpable. MUSCULOSKELETAL: Extremities without without signal edema. No obvious deformities. NEUROLOGICAL: Cranial nerves II through XII appear grossly intact. Able to move bilateral upper and lower extremities. Pleasantly confused. Assessment and Plan - Assessment and Plan Plan: Neuro/Psych: Postoperative day #1 open reduction internal fixation of T6 pathological fracture, T6 bilateral laminectomy with microsurgical resection of metastatic renal cell carcinoma, T4-T8 segment and instrumented fixation using transpedicular screws and rods, T4 through T8 posterolateral fusion using autologous with allograft bone and demineralized bone matrix, microsurgical dissection Chronic pain syndrome Postoperative management per Dr. Dela Cruz. SHUN drain 1 with serosanguineous drainage postop Acetaminophen 650 mg by mouth every 4 hours as needed fever Patient is currently on a hydromorphone drip per Dr. Dela Cruz As an outpatient previously on tramadol 50 mg every 6 hours as needed pain CV: Sinus bradycardia Essential hypertension Hyperlipidemia Continue amlodipine 2.5 mg twice daily for essential hypertension. Currently holding carvedilol 12.5 mg twice daily in light of sinus bradycardia. Currently receiving normal saline at 100 cc an hour Resp: Nasal cannula to maintain saturations greater than or equal to 92% Incentive spirometry while awake As needed albuterol aerosols every 4 hours as needed dyspnea GI: Gastroesophageal reflux disease Hypoalbuminemia Advance diet per neurosurgery Pantoprazole for GI prophylaxis Docusate sodium/senna 1 tablet twice daily for bowel regimen As needed prochlorperazine 5 mill grams every 4 hours as needed nausea if ondansetron does not work : Remove Meyers catheter Endo: Hypothyroidism Sliding scale insulin if indicated to maintain euglycemia Continue [place] Thyroid 60 mg daily Renal: Monitor urine output Accurate I's and O's Follow BMP, magnesium phosphorus in a.m. Heme: History of renal cell carcinoma stage IV with metastases to the bone History of small cell carcinoma status post left upper lobe lobectomy 2013 Leukocytosis Patient is currently on Nivolumab chemotherapy as an outpatient every 2 weeks. Transfuse 3 PRBCs in OR. Follow-up CBC in a.m. ID: Monitor for signs and symptomatology infection Currently on cefazolin 2 g IV every 8 hours 3 dosages per neurosurgery FEN: Hyponatremia Replace electrolytes as clinically indicated MSK: PT evaluate and treat Continue cholecalciferol 1000 units twice daily Access -Right radial arterial line day #1 placed in OR / -Utilize peripheral IV. Central line if indicated Prophylaxis -GI -pantoprazole -DVT -SCD/pharmacological prophylaxis when okay with Dr. Dela Cruz Level 3 consult
[2018-01-05] MEDS: Carvedilol 12.5 MG Tablet PO SCH ×2 (11:08→22:23)
[2018-01-05] MEDS: amLODIPine 5 MG Tablet PO SCH ×2 (11:09→22:23)
[2018-01-05] MEDS: Senna/Docusate Sodium 8.6/50 MG Tablet PO SCH ×2 (11:10→22:24)
--- NOTE | 2018-01-05 12:03 | P.PNNS ---
Subjective Interval history: Patient reports she is doing well. Complaining of pain at the surgical site Physical Exam Vital signs: Vital Signs 01/04/18 14:00 01/04/18 14:15 01/04/18 14:30 Temperature 97.0 F L 97.0 F L 97.0 F L Pulse Rate 60 57 L 57 L Respiratory Rate 12 12 12 Blood Pressure 116/66 126/65 130/75 Pulse Oximetry 100 100 100 01/04/18 14:45 01/04/18 15:00 01/04/18 15:30 Temperature 97.0 F L 97.0 F L 97.0 F L Pulse Rate 57 L 54 L 61 Respiratory Rate 12 12 12 Blood Pressure 151/71 H 126/63 138/71 Pulse Oximetry 100 100 100 01/04/18 15:45 01/04/18 16:00 01/04/18 16:15 Temperature 97.4 F L 97.4 F L 97.4 F L Pulse Rate 60 57 L 58 L Respiratory Rate 12 12 12 Blood Pressure 136/74 142/69 H 134/57 L Pulse Oximetry 100 100 100 01/04/18 16:30 01/04/18 16:45 01/04/18 17:00 Temperature 97.4 F L 96.3 F L Pulse Rate 66 59 L Respiratory Rate 12 Blood Pressure 132/72 144/69 H Pulse Oximetry 100 100 100 01/04/18 18:34 01/04/18 19:45 01/04/18 20:00 Temperature 97.1 F L 97.5 F L Pulse Rate 69 74 Respiratory Rate 17 Blood Pressure 131/70 128/66 Pulse Oximetry 100 100 01/04/18 20:16 01/04/18 21:41 01/05/18 00:00 Temperature 97.1 F L Pulse Rate 68 Respiratory Rate 16 12 Blood Pressure 148/73 H Pulse Oximetry 100 100 01/05/18 01:39 01/05/18 04:00 01/05/18 05:00 Temperature 97.3 F L Pulse Rate 72 Respiratory Rate 13 13 22 Blood Pressure 164/87 H Pulse Oximetry 100 Intake & Output 01/04/18 01/05/18 01/05/18 18:59 06:59 18:59 Intake Total 4200 / 4200 1050 / 1050 1550 / 1550 Output Total 850 / 850 Balance 3350 / 3350 1050 / 1050 1550 / 1550 Weight 54.8 kg Intake: IV 1050 / 1050 1550 / 1550 NS Inj 1,000 ML @ 100 mls/hr IV 1000 / 1000 1000 / 1000 .CONT .Q10H [facility] Rx#:[id number] Ancef 2 GM Premix Inj 2 gm In 50 / 50 50 / 50 50 ml @ 100 mls/hr IV.SIG Q8H [facility] Rx#:[id number] Anesthesia Amount 3000 / 3000 Intake (Blood Product) Amt 1200 / 1200 Rbc As-3 Leukoreduced Unit 400 / 400 [id number] Rbc As-3 Leukoreduced Unit 400 / 400 [id number] Rbc As-3 Leukoreduced Unit 400 / 400 [id number] Output: Urine 800 / 800 Urine Amount (Catheter) 50 / 50 Indwelling Urethral Catheter 50 / 50 Other: Date of Last Bowel Movement 01/03/18 Weight On Admission 54.8 kg Narrative: Alert and awake. Follows commands well Moves all extremities well - Urinary Catheter Management Straight Cath placed during this visit: yes, but has since been removed by the nurse Reason for continuing: Not indwelling catheter Insertion date: 01/04/18 Insertion time: 07:27 Removal date: 01/04/18 Removal time: 07:29 Indwelling Urethral Catheter Cath placed during this visit: yes Reason for continuing: Hourly intake/output Insertion date: 01/04/18 Insertion time: 09:15 Assessment and Plan - Plan Patient appears stable and doing well. Plan is to mobilize the patient when brace is available
--- NOTE | 2018-01-05 12:33 | P.CONFP ---
History of Present Illness Service: family med Consult date: 01/05/18 Primary Care Provider: Young Swanson DO Family Provider: Young Swanson DO Chief Complaint: Back pain History of Present Illness: recent thoracic fusion Review of Systems Constitutional: Reports weakness Musculoskeletal: Reports back pain PMFSH - History History Provided By: Patient - Medical History Medical History: Medical History (Last Reviewed 01/05/18 @ 08:41 by Schuyler Carpenter) Bradycardia Chronic GERD Chronic pain Hypertension Hypothyroidism Metastasis Port catheter in place Renal adenocarcinoma Small cell lung cancer, left lower lobe - Surgical History Surgical History: Surgical History (Last Reviewed 01/05/18 @ 08:41 by Schuyler Carpenter) History of total knee arthroplasty History of lobectomy of lung History of nephrectomy Previous back surgery - Family History Family History: Family History (Last Updated 01/04/18 @ 14:43 by Mariano Chacon MD) Other Family history of lung cancer - Tobacco History Second Hand Smoke Exposure: Yes Tobacco Use In Past 30 Days: No Smoking Status: Never smoker - Alcohol History How Often Do You Have a Drink Containing Alcohol: Never - Substance Use History Substance History: No History of Abuse - Travel History History of Recent Travel: No Recent Travel in the [place] Within the Last 8 Weeks: No Recent Travel Out of the Country Within the Last 8 Weeks: No Medications and Allergies Active Medications: Active Medications Acetaminophen (Tylenol) 650 mg PO Q4H PRN PRN Reason: TEMPERATURE > 101.5 F Al Hydrox/Mg Hydrox/Simethicone (Mag-Al Plus Susp Liq) 30 ml PO Q6H PRN PRN Reason: DYSPEPSIA Al Hydroxide/Mg Hydroxide (Milk Of Magnesia Liq) 30 ml PO Q12H PRN PRN Reason: Mild Constipation Albuterol (Albuterol Neb (Prn)) 2.5 mg NEB Q4HR NEB PRN PRN Reason: WHEEZING Amlodipine Besylate (Norvasc) 2.5 mg PO BID [facility] Last Admin: 01/05/18 11:09 Dose: 2.5 mg Bisacodyl (Dulcolax Supp) 10 mg RECTAL DAILY PRN PRN Reason: SEVERE CONSITIPATION Carvedilol (Coreg) 12.5 mg PO BID [facility] Last Admin: 01/05/18 11:08 Dose: 12.5 mg Chlorhexidine Gluconate (Chlorhexidine 2% Cloth) 3 pack TOPICAL FIBER OPTIC TECHNICIAN [facility] Stop: 01/07/18 06:27 Last Admin: 01/04/18 07:00 Dose: 3 pack Diphenhydramine HCl (Benadryl Inj) 25 mg IV.PUSH Q6H PRN PRN Reason: for itching Vancomycin/Sodium Chloride (Vancomycin Inj) 1 gm in 200 mls @ 200 mls/hr IV.SIG FIBER OPTIC TECHNICIAN PRN PRN Reason: GIVE PRE-OP FIBER OPTIC TECHNICIAN TO OR Cefazolin Sodium/Dextrose (Ancef 2 Gm Premix Inj) 2 gm in 50 mls @ 100 mls/hr IV.SIG Q8H [facility] Stop: 01/05/18 15:29 Last Infusion: 01/05/18 07:58 Dose: Infused Sodium Chloride (Ns Inj) 1,000 mls @ 100 mls/hr IV.CONT .Q10H [facility] Last Admin: 01/05/18 11:12 Dose: 100 mls/hr Hydromorphone/Sodium Chloride (Dilaudid Federal Judge Inj) 6 mg in 30 mls @ 0 mls/hr SMEARER UNSCH PRN PRN Reason: per SMEARER parameters Last Admin: 01/04/18 14:31 Dose: 0 mls/hr Labetalol HCl (Trandate Inj) 10 mg IV.PUSH Q1H PRN PRN Reason: SYS BP GREATER THAN 170 MMHG Lactulose (Lactulose Liq) 30 ml PO DAILY PRN PRN Reason: SEVERE CONSITIPATION Metoprolol Tartrate (Lopressor) 25 mg PO FIBER OPTIC TECHNICIAN [facility] Stop: 01/07/18 06:27 Last Admin: 01/04/18 07:38 Dose: Not Given Miscellaneous Information ([facility] [place] Nursing Information) 1 each OTHER UNSCH PRN PRN Reason: SEE LABEL COMMENTS Stop: 01/05/18 14:03 Naloxone HCl (Narcan Inj) 0.4 mg IV.PUSH PRN PRN PRN Reason: SEE LABEL COMMENTS Non-Formulary Medication (Nivolumab) 1 mg/kg IV.SIG DIRECTED [facility] Ondansetron HCl (Zofran Odt) 4 mg PO Q6H PRN PRN Reason: NAUSEA OR VOMITING Last Admin: 01/05/18 00:04 Dose: 4 mg Ondansetron HCl (Zofran Inj) 4 mg IV.PUSH Q6H PRN PRN Reason: NAUSEA OR VOMITING Last Admin: 01/05/18 11:10 Dose: 4 mg Pantoprazole Sodium (Protonix) 40 mg PO DAILY [facility] Last Admin: 01/05/18 11:11 Dose: 40 mg Povidone Iodine (Betadine 5% Antisepsis Kit) 1 applicatio EACH NARE FIBER OPTIC TECHNICIAN [facility] Stop: 01/07/18 06:27 Last Admin: 01/04/18 07:30 Dose: 1 applicatio Prochlorperazine Edisylate (Compazine Inj) 5 mg IV.PUSH Q4H PRN PRN Reason: BREAKTHROUGH NAUSEA Senna/Docusate Sodium (Sandy-Colace) 1 tab PO BID [facility] Last Admin: 01/05/18 11:10 Dose: 1 tab Sennosides (Senokot) 17.2 mg PO Q12H PRN PRN Reason: Moderate Constipation Thyroid ([place] Thyroid) 60 mg PO DAILY@0600 [facility] Last Admin: 01/05/18 06:03 Dose: 60 mg Vitamin D (Vitamin D3) 1,000 unit PO BID [facility] Last Admin: 01/05/18 11:10 Dose: 1,000 unit Allergies Allergy/AdvReac Type Severity Reaction Status Date / Time ferrous fumarate Allergy Unknown Irritation Verified 01/04/18 20:13 ferrous sulfate Allergy Unknown Irritation Verified 01/04/18 07:37 ferumoxytol Allergy Unknown Irritation Verified 01/04/18 07:37 iron Allergy Unknown Irritation Verified 01/04/18 07:37 multivitamin infusion, adult Allergy Unknown Irritation Verified 01/04/18 07:37 no.4 with vitamin K multivitamin with iron,other Allergy Unknown Irritation Verified 01/04/18 07:36 minerals Home Medications Medication Instructions Recorded Confirmed Type amlodipine 2.5 mg PO BID 12/27/17 01/04/18 History carvedilol 12.5 mg PO BID 12/27/17 01/04/18 History nivolumab [Opdivo] 1 mg/kg IV DIRECTED 12/27/17 01/04/18 History tramadol 50 mg PO Q4-6H PRN 12/27/17 01/04/18 History cholecalciferol (vitamin D3) 1,000 unit PO BID 01/04/18 01/04/18 History [Vitamin D3] thyroid (pork) [[place] Thyroid] 60 mg PO DAILY 01/04/18 01/04/18 History Exam Vital signs: Vital Signs 01/04/18 14:00 01/04/18 14:15 01/04/18 14:30 Temperature 97.0 F L 97.0 F L 97.0 F L Pulse Rate 60 57 L 57 L Respiratory Rate 12 12 12 Blood Pressure 116/66 126/65 130/75 Pulse Oximetry 100 100 100 01/04/18 14:45 01/04/18 15:00 01/04/18 15:30 Temperature 97.0 F L 97.0 F L 97.0 F L Pulse Rate 57 L 54 L 61 Respiratory Rate 12 12 12 Blood Pressure 151/71 H 126/63 138/71 Pulse Oximetry 100 100 100 01/04/18 15:45 01/04/18 16:00 01/04/18 16:15 Temperature 97.4 F L 97.4 F L 97.4 F L Pulse Rate 60 57 L 58 L Respiratory Rate 12 12 12 Blood Pressure 136/74 142/69 H 134/57 L Pulse Oximetry 100 100 100 01/04/18 16:30 01/04/18 16:45 01/04/18 17:00 Temperature 97.4 F L 96.3 F L Pulse Rate 66 59 L Respiratory Rate 12 Blood Pressure 132/72 144/69 H Pulse Oximetry 100 100 100 01/04/18 18:34 01/04/18 19:45 01/04/18 20:00 Temperature 97.1 F L 97.5 F L Pulse Rate 69 74 Respiratory Rate 17 Blood Pressure 131/70 128/66 Pulse Oximetry 100 100 01/04/18 20:16 01/04/18 21:41 01/05/18 00:00 Temperature 97.1 F L Pulse Rate 68 Respiratory Rate 16 12 Blood Pressure 148/73 H Pulse Oximetry 100 100 01/05/18 01:39 01/05/18 04:00 01/05/18 05:00 Temperature 97.3 F L Pulse Rate 72 Respiratory Rate 13 13 22 Blood Pressure 164/87 H Pulse Oximetry 100 Intake & Output 01/04/18 01/05/18 01/05/18 18:59 06:59 18:59 Intake Total 4200 / 4200 1050 / 1050 1550 / 1550 Output Total 850 / 850 Balance 3350 / 3350 1050 / 1050 1550 / 1550 Weight 54.8 kg Intake: IV 1050 / 1050 1550 / 1550 NS Inj 1,000 ML @ 100 mls/hr IV 1000 / 1000 1000 / 1000 .CONT .Q10H [facility] Rx#:[id number] Ancef 2 GM Premix Inj 2 gm In 50 / 50 50 / 50 50 ml @ 100 mls/hr IV.SIG Q8H [facility] Rx#:[id number] Anesthesia Amount 3000 / 3000 Intake (Blood Product) Amt 1200 / 1200 Rbc As-3 Leukoreduced Unit 400 / 400 [id number] Rbc As-3 Leukoreduced Unit 400 / 400 [id number] Rbc As-3 Leukoreduced Unit 400 / 400 [id number] Output: Urine 800 / 800 Urine Amount (Catheter) 50 / 50 Indwelling Urethral Catheter 50 Other: Date of Last Bowel Movement 01/03/18 Weight On Admission 54.8 kg - Constitutional somnolent - Routine HEENT Exam Head: Present: normocephalic, atraumatic Eye: Present: EOMI, PERRL - Routine Respiratory Exam Present: decreased breath sounds, CTA bilaterally - Routine Cardiovascular Exam Present: RRR - Routine Abdominal Exam Present: soft - Routine Extremities Exam Present: pulses intact - Routine Neurological Exam Present: alert, oriented X3 Results - Labs Result diagrams: 01/04/18 17:45 01/04/18 17:45 Abnormal lab results 01/04/18 01/04/18 01/04/18 Range/Units 11:03 12:32 12:32 WBC (4.0-11.0) th/mm3 RBC 3.88 L (4.00-5.30) mil/mm3 Hct 34.7 L (35.0-46.0) % Plt Count (150-450) th/mm3 ABG pH 7.36 L (7.380-7.420) ABG pCO2 35 L (38-42) mmHg ABG pO2 294 H (61-120) mmHG ABG HCO3 19 L (22-26) mmol/L ABG Base Excess -5.5 L (-2-2) mmol/L Hemoglobin 11.3 L (12.0-16.0) G/DL Chloride (98-107) meq/L BUN (7-18) mg/dL Creatinine (0.50-1.00) mg/dL Estimated GFR (>89) mL/min Random Glucose (74-106) mg/dL Calcium (8.5-10.1) mg/dL Prot Corrected Calcium (8.5-10.1) mg/dL Total Protein (6.4-8.2) g/dL Albumin (3.4-5.0) g/dL MTS Gel Crossmatch See Detail 01/04/18 01/04/18 01/04/18 Range/Units 17:45 17:45 17:45 WBC 14.9 H D (4.0-11.0) th/mm3 RBC 3.90 L (4.00-5.30) mil/mm3 Hct (35.0-46.0) % Plt Count 137 L (150-450) th/mm3 ABG pH (7.380-7.420) ABG pCO2 (38-42) mmHg ABG pO2 (61-120) mmHG ABG HCO3 (22-26) mmol/L ABG Base Excess (-2-2) mmol/L Hemoglobin (12.0-16.0) G/DL Chloride 111 H (98-107) meq/L BUN 19 H (7-18) mg/dL Creatinine 1.36 H (0.50-1.00) mg/dL Estimated GFR 38 L (>89) mL/min Random Glucose 134 H (74-106) mg/dL Calcium 7.1 L* (8.5-10.1) mg/dL Prot Corrected Calcium 8.4 L (8.5-10.1) mg/dL Total Protein 4.8 L (6.4-8.2) g/dL Albumin 2.5 L (3.4-5.0) g/dL MTS Gel Crossmatch Short CBC 01/04/18 01/04/18 Range/Units 12:32 17:45 WBC 5.1 14.9 H D (4.0-11.0) th/mm3 Hgb 11.7 11.9 (11.6-15.3) gm/dL Hct 34.7 L 35.1 (35.0-46.0) % Plt Count 152 137 L (150-450) th/mm3 BMP 01/04/18 17:45 Sodium 144 Potassium 4.5 Chloride 111 H Carbon Dioxide 23.7 BUN 19 H Creatinine 1.36 H Calcium 7.1 L* Liver Function 01/04/18 Range/Units 17:45 Albumin 2.5 L (3.4-5.0) g/dL - Imaging Impressions Chest X-Ray 01/04/18 00:00 CONCLUSION: Parenchymal infiltrate in the left lower lung. This may represent some atelectasis. The right lung is grossly clear. Thoracic Spine X-Ray 01/04/18 00:00 CONCLUSION: Extensive fusion hardware extending from T4 through T8 in good position. Assessment and Plan - Assessment (1) H/O spinal fusion Code(s): Z98.1 - Arthrodesis status Status: Acute (2) Infiltrate noted on imaging study Code(s): R93.8 - Abnormal findings on diagnostic imaging of other specified body structures Status: Acute Plan: pt on vanco and cefazolin will change albuterol to scheduled and follow cxr closely
[2018-01-05 15:23] LABS: Baso % (Auto) 0.1 % (0.0-2.0); Hematocrit 33.7 % (35.0-46.0); Hemoglobin 11.3 gm/dL (11.6-15.3); Lymph # (Auto) 0.3 th/mm3 (1.0-4.8); Lymph % (Auto) 1.9 % (9.0-44.0); Mean Corpuscular HGB Conc 33.5 % (32.0-36.0); Mean Corpuscular Volume 89.7 fL (80.0-100.0); Mono # (Auto) 1.5 th/mm3 (0.0-0.9); Mono % (Auto) 9.4 % (0.0-8.0); Neut # (Auto) 13.6 th/mm3 (1.8-7.7); Neut % (Auto) 88.6 % (16.0-70.0); Platelet Count 135 th/mm3 (150-450); Red Blood Count 3.76 mil/mm3 (4.00-5.30); Red Cell Distribution Width 14.6 % (11.6-17.2); White Blood Count 15.4 th/mm3 (4.0-11.0)
[2018-01-05 15:41] LABS: Calcium 6.9 mg/dL (8.5-10.1); Carbon Dioxide 25.4 meq/L (21.0-32.0); Magnesium 1.9 mg/dL (1.5-2.5); Potassium 4.8 meq/L (3.5-5.1)
[2018-01-05 15:43] LABS: Activated Partial Thrombo Time 25.4 sec (24.3-30.1); INR 1.1 Ratio; Prothrombin Time 10.8 sec (9.8-11.6)
[2018-01-05 15:55] LABS: Total Protein 5.5 g/dL (6.4-8.2)
[2018-01-06] MEDS: Sod Chloride 0.9% Inj 1,000 ML IV.CONT SCH (01:24)
[2018-01-06 04:58] LABS: Baso % (Auto) 0.2 % (0.0-2.0); Eos % (Auto) 0.1 % (0.0-4.0); Hematocrit 32.4 % (35.0-46.0); Hemoglobin 10.8 gm/dL (11.6-15.3); Lymph # (Auto) 0.4 th/mm3 (1.0-4.8); Lymph % (Auto) 2.9 % (9.0-44.0); Mean Corpuscular HGB Conc 33.3 % (32.0-36.0); Mean Corpuscular Hemoglobin 29.9 pg (27.0-34.0); Mean Corpuscular Volume 89.7 fL (80.0-100.0); Mean Platelet Volume 8.5 fL (7.0-11.0); Mono # (Auto) 1.5 th/mm3 (0.0-0.9); Mono % (Auto) 11.9 % (0.0-8.0); Neut # (Auto) 10.5 th/mm3 (1.8-7.7); Neut % (Auto) 84.9 % (16.0-70.0); Platelet Count 132 th/mm3 (150-450); Red Blood Count 3.62 mil/mm3 (4.00-5.30); Red Cell Distribution Width 14.9 % (11.6-17.2); White Blood Count 12.3 th/mm3 (4.0-11.0)
[2018-01-06 05:27] LABS: Calcium 6.8 mg/dL (8.5-10.1); Carbon Dioxide 27.2 meq/L (21.0-32.0); Potassium 4.4 meq/L (3.5-5.1)
[2018-01-06 05:39] LABS: Total Protein 5.3 g/dL (6.4-8.2)
--- NOTE | 2018-01-06 08:30 | P.PNCC ---
Subjective Subjective Remarks/Hospital Course: This is a 77-year-old female. Date of admission 01/04/2018. Date of consultation 01/04/2018. 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 Richards 2012, renal cell carcinoma with metastases to the spine undergoing radiation therapy. She is on Nivolumab every 2 weeks for her renal cell carcinoma. She also has history of chronic pain syndrome, hypertension, hyperlipidemia, sinus bradycardia, gastroesophageal reflux disease and hypothyroidism. Patient was seen by Dr. Dela Cruz for pain/unstable T-spine as an outpatient. Today, the patient underwent a T6 laminectomy with ORIF of fractures T4 through 8 with internal fixation using transpedicular screws and rods. 3000 cc crystalloid. 3 units PRBCs. 850 EBL. 800 cc urine output. Patient has been extubated is currently seen in PACU he was medically stable in sinus bradycardia 01/05: Afebrile. Complaining of some nausea this morning on hydromorphone RELATIONSHIP ADVISOR. Chlorpromazine order. Making urine. A.m. laboratories pending. Pleasantly confused. SUBJECTIVE: 01/06: Resting comfortably in bed in no acute distress. Pain with movement but controlled at rest on hydromorphone RELATIONSHIP ADVISOR. Was in TLSO brace in chair overnight. Hypertensive overnight. Increasing amlodipine to 5 mg twice daily. Objective Vital Signs / I&O: Vital Signs 01/05/18 12:00 01/05/18 14:35 01/05/18 16:00 Temperature 98.4 F 97.9 F Pulse Rate 74 74 Respiratory Rate 10 L 22 16 Blood Pressure 153/73 H 141/67 H Pulse Oximetry 01/05/18 17:06 01/05/18 18:03 01/05/18 20:00 Temperature 98.6 F Pulse Rate 71 80 Respiratory Rate 14 23 15 Blood Pressure 137/67 Pulse Oximetry 97 98 01/05/18 20:54 01/05/18 22:26 01/06/18 00:00 Temperature 98.7 F Pulse Rate 82 83 Respiratory Rate 14 15 16 Blood Pressure 146/69 H Pulse Oximetry 96 97 01/06/18 01:05 01/06/18 02:35 01/06/18 04:00 Temperature 98.6 F Pulse Rate 80 73 Respiratory Rate 16 12 13 Blood Pressure 157/69 H Pulse Oximetry 93 L 01/06/18 07:17 Temperature Pulse Rate Respiratory Rate 15 Blood Pressure Pulse Oximetry Intake & Output 01/05/18 01/06/18 01/06/18 18:59 06:59 18:59 Intake Total 1950 / 1950 4120 / 4120 Output Total 1140 / 1140 2325 / 2325 Balance 810 / 810 1795 / 1795 Weight 59.9 kg Intake: IV 1900 / 1900 1000 / 1000 NS Inj 1,000 ML @ 100 mls/hr IV 1300 / 1300 1000 / 1000 .CONT .Q10H [facility] Rx#:[id number] Ancef 2 GM Premix Inj 2 gm In 100 / 100 50 ml @ 100 mls/hr IV.SIG Q8H [facility] Rx#:[id number] Oral 50 / 50 120 / 120 Anesthesia Amount 3000 / 3000 Output: Urine 2300 / 2300 Urine Amount (Catheter) 1100 / 1100 Indwelling Urethral Catheter 1100 / 1100 Wound Drainage 40 / 40 25 / 25 Back SHUN Drain 40 / 40 25 / 25 Other: Date of Last Bowel Movement 01/03/18 01/03/18 # Bowel Movements 0 0 Result Diagrams: 01/06/18 04:42 01/06/18 04:42 Imaging: ITS Impressions Chest X-Ray 01/04/18 00:00 CONCLUSION: Parenchymal infiltrate in the left lower lung. This may represent some atelectasis. The right lung is grossly clear. Thoracic Spine X-Ray 01/04/18 00:00 CONCLUSION: Extensive fusion hardware extending from T4 through T8 in good position. Objective Remarks: GENERAL: 77-year-old female currently resting in bed in no acute distress SKIN: Warm and dry. No rash HEAD: Atraumatic. Normocephalic. EYES: Pupils equal and round about 3 mm bilaterally reactive to 2 . No scleral icterus. No injection or drainage. ENT: No nasal bleeding or discharge. Mucous membranes pink and moist. NECK: Trachea midline. No JVD. CARDIOVASCULAR: Tachycardic, RR. S1, S2 predose 4. 2/6 systolic murmur pansternal RESPIRATORY: No accessory muscle use. Clear to auscultation. Breath sounds equal bilaterally. GASTROINTESTINAL: Abdomen soft, non-tender, nondistended. Hepatic and splenic margins not palpable. MUSCULOSKELETAL: Extremities without without signal edema. No obvious deformities. SHUN in place with serosanguineous drainage. NEUROLOGICAL: Cranial nerves II through XII appear grossly intact. Able to move bilateral upper and lower extremities. Pleasantly confused. Assessment and Plan - Assessment and Plan Plan: Neuro/Psych: Postoperative day #2open reduction internal fixation of T6 pathological fracture , T6 bilateral laminectomy with microsurgical resection of metastatic renal cell carcinoma, T4-T8 segment and instrumented fixation using transpedicular screws and rods, T4 through T8 posterolateral fusion using autologous with allograft bone and demineralized bone matrix, microsurgical dissection Chronic pain syndrome Postoperative management per Dr. Dela Cruz. SHUN drain 1 with serosanguineous drainage 65 cc past 24 hours Acetaminophen 650 mg by mouth every 4 hours as needed fever Patient is currently on a hydromorphone drip per Dr. Dela Cruz As an outpatient previously on tramadol 50 mg every 6 hours as needed pain CV: Sinus bradycardia Essential hypertension Hyperlipidemia Will increase home medication amlodipine 2.5 mg twice daily for essential hypertension 2 5 mg twice daily. Resumed carvedilol 12.5 mg twice daily. Watch for sinus bradycardia Currently receiving normal saline at 100 cc an hour. Discontinue today Resp: Nasal cannula to maintain saturations greater than or equal to 92% Incentive spirometry while awake As needed albuterol aerosols every 4 hours as needed dyspnea GI: Gastroesophageal reflux disease Hypoalbuminemia Advance diet per neurosurgery Pantoprazole for GI prophylaxis Docusate sodium/senna 1 tablet twice daily for bowel regimen As needed prochlorperazine 5 mill grams every 4 hours as needed nausea if ondansetron does not work : Remove Meyers catheter Endo: Hypothyroidism Sliding scale insulin if indicated to maintain euglycemia Continue [place] Thyroid 60 mg daily Renal: Elevated creatinine 1.47. Unknown baseline. Probably chronic kidney disease stage IIIa Monitor urine output Accurate I's and O's Follow BMP, magnesium phosphorus in a.m. Heme: History of renal cell carcinoma stage IV with metastases to the bone History of small cell carcinoma status post left upper lobe lobectomy 2012 Leukocytosis Normocytic anemia Thrombus cytopenia Patient is currently on Nivolumab chemotherapy as an outpatient every 2 weeks. Transfuse 3 PRBCs in OR. Follow-up CBC in a.m. 7/ ID: Monitor for signs and symptomatology infection Completed cefazolin 2 g IV every 8 hours 3 dosages per neurosurgery FEN: Hypocalcemia Replace electrolytes as clinically indicated MSK: PT evaluate and treat Continue cholecalciferol 1000 units twice daily Access -Right radial arterial line day #1 placed in OR 01/04. Discontinue 01/05 -Utilize peripheral IV. Central line if indicated Prophylaxis -GI -pantoprazole -DVT -SCD/pharmacological prophylaxis when okay with Dr. Dela Cruz Level 2 follow-up. Patient is stable from a critical care medicine standpoint. Assign care to Dr. Swanson who is actively following currently.
[2018-01-06] MEDS: Senna/Docusate Sodium 8.6/50 MG Tablet PO SCH ×2 (08:43→20:55)
[2018-01-06] MEDS: Carvedilol 12.5 MG Tablet PO SCH ×2 (08:43→20:54)
[2018-01-06] MEDS: amLODIPine 5 MG Tablet PO SCH ×2 (08:43→20:54)
--- NOTE | 2018-01-06 11:20 | P.PNFP ---
Subjective Interval history: doing well discussed ewelina mccartyhilary Dejesus Results - Labs Result diagrams: 01/06/18 04:42 01/06/18 04:42 Abnormal lab results 01/04/18 01/04/18 01/05/18 Range/Units 09:14 11:03 13:25 WBC 15.4 H (4.0-11.0) th/mm3 RBC 3.76 L (4.00-5.30) mil/mm3 Hgb 11.3 L (11.6-15.3) gm/dL Hct 33.7 L (35.0-46.0) % Plt Count 135 L (150-450) th/mm3 Neut % (Auto) 88.6 H (16.0-70.0) % Lymph % (Auto) 1.9 L (9.0-44.0) % [place] % (Auto) 9.4 H (0.0-8.0) % Neut # (Auto) 13.6 H (1.8-7.7) th/mm3 Lymph # (Auto) 0.3 L (1.0-4.8) th/mm3 [place] # (Auto) 1.5 H (0.0-0.9) th/mm3 Chloride (98-107) meq/L BUN (7-18) mg/dL Creatinine (0.50-1.00) mg/dL Estimated GFR (>89) mL/min Calcium (8.5-10.1) mg/dL Prot Corrected Calcium (8.5-10.1) mg/dL Total Protein (6.4-8.2) g/dL MTS Gel Crossmatch See Detail See Detail 01/05/18 01/06/18 01/06/18 Range/Units 13:25 04:42 04:42 WBC 12.3 H (4.0-11.0) th/mm3 RBC 3.62 L (4.00-5.30) mil/mm3 Hgb 10.8 L (11.6-15.3) gm/dL Hct 32.4 L (35.0-46.0) % Plt Count 132 L (150-450) th/mm3 Neut % (Auto) 84.9 H (16.0-70.0) % Lymph % (Auto) 2.9 L (9.0-44.0) % [place] % (Auto) 11.9 H (0.0-8.0) % Neut # (Auto) 10.5 H (1.8-7.7) th/mm3 Lymph # (Auto) 0.4 L (1.0-4.8) th/mm3 [place] # (Auto) 1.5 H (0.0-0.9) th/mm3 Chloride 109 H (98-107) meq/L BUN 19 H (7-18) mg/dL Creatinine 1.48 H 1.47 H (0.50-1.00) mg/dL Estimated GFR 34 L 35 L (>89) mL/min Calcium 6.9 L* 6.8 L* (8.5-10.1) mg/dL Prot Corrected Calcium 7.7 L 7.7 L (8.5-10.1) mg/dL Total Protein 5.5 L D 5.3 L (6.4-8.2) g/dL MTS Gel Crossmatch Short CBC 01/05/18 01/06/18 Range/Units 13:25 04:42 WBC 15.4 H 12.3 H (4.0-11.0) th/mm3 Hgb 11.3 L 10.8 L (11.6-15.3) gm/dL Hct 33.7 L 32.4 L (35.0-46.0) % Plt Count 135 L 132 L (150-450) th/mm3 BMP 01/05/18 01/06/18 13:25 04:42 Sodium 143 142 Potassium 4.8 4.4 Chloride 109 H 107 Carbon Dioxide 25.4 27.2 BUN 19 H 17 Creatinine 1.48 H 1.47 H Calcium 6.9 L* 6.8 L* Physical Exam Vital signs: Vital Signs 01/05/18 12:00 01/05/18 14:35 01/05/18 16:00 Temperature 98.4 F 97.9 F Pulse Rate 74 74 Respiratory Rate 10 L 22 16 Blood Pressure 153/73 H 141/67 H Pulse Oximetry 01/05/18 17:06 01/05/18 18:03 01/05/18 20:00 Temperature 98.6 F Pulse Rate 71 80 Respiratory Rate 14 23 15 Blood Pressure 137/67 Pulse Oximetry 97 98 01/05/18 20:54 01/05/18 22:26 01/06/18 00:00 Temperature 98.7 F Pulse Rate 82 83 Respiratory Rate 14 15 16 Blood Pressure 146/69 H Pulse Oximetry 96 97 01/06/18 01:05 01/06/18 02:35 01/06/18 04:00 Temperature 98.6 F Pulse Rate 80 73 Respiratory Rate 16 12 13 Blood Pressure 157/69 H Pulse Oximetry 93 L 01/06/18 07:17 01/06/18 08:00 01/06/18 08:47 Temperature 98 F Pulse Rate 72 75 Respiratory Rate 15 13 17 Blood Pressure 156/70 H Pulse Oximetry 94 L 94 L Intake & Output 01/05/18 01/06/18 01/06/18 18:59 06:59 18:59 Intake Total 1950 / 1950 4120 / 4120 Output Total 1140 / 1140 2325 / 2325 Balance 810 / 810 1795 / 1795 Weight 59.9 kg Intake: IV 1900 / 1900 1000 / 1000 NS Inj 1,000 ML @ 100 mls/hr IV 1300 / 1300 1000 / 1000 .CONT .Q10H [facility] Rx#:[id number] Ancef 2 GM Premix Inj 2 gm In 100 / 100 50 ml @ 100 mls/hr IV.SIG Q8H [facility] Rx#:[id number] Oral 50 / 50 120 / 120 Anesthesia Amount 3000 / 3000 Output: Urine 2300 / 2300 Urine Amount (Catheter) 1100 / 1100 Indwelling Urethral Catheter 1100 / 1100 Wound Drainage 40 / 40 25 / 25 Back SHUN Drain 40 / 40 25 / 25 Other: Date of Last Bowel Movement 01/03/18 01/03/18 01/03/18 # Bowel Movements 0 0 - Constitutional no acute distress - Routine HEENT Exam Head: Present: normocephalic, atraumatic Eye: Present: EOMI, PERRL ENT: Present: mucous membranes moist - Routine Respiratory Exam Present: decreased breath sounds, CTA bilaterally - Routine Cardiovascular Exam Present: RRR - Routine Abdominal Exam Present: soft, normoactive bowel sounds - Routine Skin Exam Present: intact - Urinary Catheter Management Straight Cath placed during this visit: yes, but has since been removed by the nurse Reason for continuing: Not indwelling catheter Insertion date: 01/04/18 Insertion time: 07:27 Removal date: 01/04/18 Removal time: 07:29 Indwelling Urethral Catheter Cath placed during this visit: yes Reason for continuing: Hourly intake/output Insertion date: 01/04/18 Insertion time: 09:15 Assessment and Plan - Assessment (1) H/O spinal fusion Code(s): Z98.1 - Arthrodesis status Status: Acute (2) Infiltrate noted on imaging study Code(s): R93.8 - Abnormal findings on diagnostic imaging of other specified body structures Status: Acute Plan: pt on vanco and cefazolin will change albuterol to scheduled and follow cxr closely 01/06 breathing well will repeat cxr in am - Assessment and Plan asses cxr dc plan to Oleg
[2018-01-06] MEDS ORDERED: HYDROmorphone PF Inj 2 MG/ML Vial IV.PUSH PRN (12:00)
--- NOTE | 2018-01-06 12:34 | XR ---
EXAM DATE: 01/06/2018 12:28 PM EDT AGE/SEX: 77 years / Female INDICATIONS: Shortness of breath. CLINICAL DATA: This is the patient's subsequent encounter. Patient reports that signs and symptoms h ave been present for 3 days and indicates a pain score of 0/10. MEDICAL/SURGICAL HISTORY: Hypertension. Carcinoma, lung. Cardiovascular disease. Bradycardia . GERD. . Port. Left lobectomy. back surgery. COMPARISON: [facility] [place], CHEST 1V SINGLE AP, 01/04/2018. . FINDINGS: AP and lateral views of the chest demonstrate the cardiomegaly and left basilar density. Postsurgical changes with fusion upper thoracic spine fixating compression deformity. Right-sided port unchanged. The cardiomediastinal contours are unremarkable. Osseous structures are intact. CONCLUSION: Left basilar consolidation. Electronically signed by: Maico Tyson MD 01/06/2018 12:33 PM EDT
--- NOTE | 2018-01-06 16:49 | P.PNNS ---
Subjective Interval history: Patient reports doing well. Pain is well controlled. Wants to get out of bed Physical Exam Vital signs: Vital Signs 01/05/18 17:06 01/05/18 18:03 01/05/18 20:00 Temperature 98.6 F Pulse Rate 71 80 Respiratory Rate 14 23 15 Blood Pressure 137/67 Pulse Oximetry 97 98 01/05/18 20:54 01/05/18 22:26 01/06/18 00:00 Temperature 98.7 F Pulse Rate 82 83 Respiratory Rate 14 15 16 Blood Pressure 146/69 H Pulse Oximetry 96 97 01/06/18 01:05 01/06/18 02:35 01/06/18 04:00 Temperature 98.6 F Pulse Rate 80 73 Respiratory Rate 16 12 13 Blood Pressure 157/69 H Pulse Oximetry 93 L 01/06/18 07:17 01/06/18 08:00 01/06/18 08:47 Temperature 98 F Pulse Rate 72 75 Respiratory Rate 15 13 17 Blood Pressure 156/70 H Pulse Oximetry 94 L 94 L 01/06/18 12:00 Temperature 98.5 F Pulse Rate 73 Respiratory Rate 16 Blood Pressure 116/56 L Pulse Oximetry Intake & Output 01/05/18 01/06/18 01/06/18 18:59 06:59 18:59 Intake Total 1950 / 1950 4120 / 4120 Output Total 1140 / 1140 2325 / 2325 Balance 810 / 810 1795 / 1795 Weight 59.9 kg Intake: IV 1900 / 1900 1000 / 1000 NS Inj 1,000 ML @ 100 mls/hr IV 1300 / 1300 1000 / 1000 .CONT .Q10H BRIAN Rx#:[id number] Ancef 2 GM Premix Inj 2 gm In 100 / 100 50 ml @ 100 mls/hr IV.SIG Q8H BRIAN Rx#:[id number] Oral 50 / 50 120 / 120 Anesthesia Amount 3000 / 3000 Output: Urine 2300 / 2300 Urine Amount (Catheter) 1100 / 1100 Indwelling Urethral Catheter 1100 / 1100 Wound Drainage 40 / 40 25 / 25 Back SHUN Drain 40 / 40 25 / Other: Date of Last Bowel Movement 01/03/18 01/03/18 01/03/18 # Bowel Movements 0 0 Narrative: Alert and awake moves all extremities well Was able to sit up in a chair with the brace - Urinary Catheter Management Straight Cath placed during this visit: yes, but has since been removed by the nurse Reason for continuing: Not indwelling catheter Insertion date: 01/04/18 Insertion time: 07:27 Removal date: 01/04/18 Removal time: 07:29 Indwelling Urethral Catheter Cath placed during this visit: yes Reason for continuing: Hourly intake/output Insertion date: 01/04/18 Insertion time: 09:15 Assessment and Plan - Plan Appears to be doing well from a surgical standpoint although she may have developed a postoperative pneumonia. She is to undergo further evaluation in the a.m. patient pleased with the operative outcome
[2018-01-06] MEDS: Acetaminophen 325 MG Tablet PO PRN (20:57)
[2018-01-07 04:21] LABS: Baso % (Auto) 0.1 % (0.0-2.0); Eos % (Auto) 0.1 % (0.0-4.0); Hematocrit 32.8 % (35.0-46.0); Hemoglobin 11.2 gm/dL (11.6-15.3); Lymph # (Auto) 0.5 th/mm3 (1.0-4.8); Lymph % (Auto) 4.6 % (9.0-44.0); Mean Corpuscular Hemoglobin 30.5 pg (27.0-34.0); Mean Corpuscular Volume 89.7 fL (80.0-100.0); Mean Platelet Volume 8.7 fL (7.0-11.0); Mono # (Auto) 1.1 th/mm3 (0.0-0.9); Mono % (Auto) 9.8 % (0.0-8.0); Neut # (Auto) 9.5 th/mm3 (1.8-7.7); Neut % (Auto) 85.4 % (16.0-70.0); Platelet Count 132 th/mm3 (150-450); Red Blood Count 3.65 mil/mm3 (4.00-5.30); Red Cell Distribution Width 14.4 % (11.6-17.2); White Blood Count 11.2 th/mm3 (4.0-11.0)
[2018-01-07 04:41] LABS: Calcium 7.8 mg/dL (8.5-10.1); Carbon Dioxide 27.1 meq/L (21.0-32.0); Magnesium 2.2 mg/dL (1.5-2.5); Phosphorus 1.6 mg/dL (2.5-4.9); Potassium 3.7 meq/L (3.5-5.1)
[2018-01-07] MEDS: Acetaminophen 325 MG Tablet PO PRN (06:49)
[2018-01-07] MEDS: amLODIPine 5 MG Tablet PO SCH (09:35)
[2018-01-07] MEDS: Senna/Docusate Sodium 8.6/50 MG Tablet PO SCH (09:35)
[2018-01-07] MEDS: Carvedilol 12.5 MG Tablet PO SCH (09:35)
--- NOTE | 2018-01-07 12:05 | P.PNNS ---
Subjective Interval history: Doing well, ambulating with PT using a rolling walker. Surgical pain controlled. Physical Exam Vital signs: Vital Signs 01/06/18 16:00 01/06/18 19:58 01/06/18 20:00 Temperature 98.5 F 98.7 F Pulse Rate 78 82 76 Respiratory Rate 16 16 12 Blood Pressure 134/66 158/69 H Pulse Oximetry 94 L 94 L 01/07/18 00:00 01/07/18 01:36 01/07/18 04:00 Temperature 97.2 F L 97.4 F L Pulse Rate 68 82 Respiratory Rate 14 12 26 H Blood Pressure 128/72 Pulse Oximetry 96 96 01/07/18 08:23 Temperature Pulse Rate 83 Respiratory Rate 16 Blood Pressure Pulse Oximetry 98 Intake & Output 01/06/18 01/07/18 01/07/18 18:59 06:59 18:59 Intake Total 360 / 360 3360 / 3360 Output Total 1325 / 1325 3625 / 3625 Balance -965 / -965 -265 / -265 Weight 59.9 kg 59.9 kg Intake: Oral 360 / 360 360 / 360 Anesthesia Amount 3000 / 3000 Output: Urine 2300 / 2300 Stool 0 / 0 0 / 0 Urine Amount (Catheter) 1300 / 1300 1300 / 1300 Indwelling Urethral Catheter 1300 / 1300 1300 / 1300 Wound Drainage 25 / Back SHUN Drain 25 Other: Date of Last Bowel Movement 01/03/18 01/03/18 # Bowel Movements 0 - Constitutional no acute distress, cooperative - Routine HEENT Exam Head: Present: normocephalic, atraumatic Eye: Present: EOMI, PERRL - Routine Neurological Exam Present: alert, oriented X3 - Routine Psychiatric Exam Present: normal affect - Urinary Catheter Management Straight Cath placed during this visit: yes, but has since been removed by the nurse Reason for continuing: Not indwelling catheter Insertion date: 01/04/18 Insertion time: 07:27 Removal date: 01/04/18 Removal time: 07:29 Indwelling Urethral Catheter Cath placed during this visit: yes, but has since been removed by the nurse Reason for continuing: Hourly intake/output Insertion date: 01/04/18 Insertion time: 09:15 Removal date: 01/06/18 Removal time: 15:00 Assessment and Plan - Assessment (1) Pathologic thoracic fracture Code(s): M84.48XA - Pathological fracture, other site, initial encounter for fracture Status: Acute (2) H/O spinal fusion Code(s): Z98.1 - Arthrodesis status Status: Acute - Plan doing well, discontinue SHUN drain cont TLSO brace when out of bed dc planning to [facility] clear to dc when accepted Optifoam dressing to be removed 01/11 and transition to [place] dressing follow up in office in 1 week or when discharged from [facility]
[2018-01-07] MEDS ORDERED: NIVOLUMAB IV.PUSH SCH (16:15)
--- NOTE | 2018-01-07 17:09 | P.DS ---
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 She failed medical nonsurgical management. A surgical decompression with reduction of the fracture and arthrodesis were indicated as the most appropriate treatment. DS: Diagnosis - Discharge Diagnosis (1) Pathologic thoracic fracture Status: Acute (2) H/O spinal fusion Status: Acute DS: Summary Hospital Course: Ms. Olguin underwent a open reduction internal fixation of T6 pathological fracture, T6 bilateral laminectomy with decompression of the spinal cord and microsurgical resection of metastatic renal cell carcinoma, T4-T8 segment and instrumented fixation using transpedicular screws and rods, T4 through T8 posterolateral fusion using autologous bone and demineralized bone matrix, microsurgical dissection on 01/05/18. - Time Spent with Patient Total time spent providing and/or coordinating discharge services: - Quality: VTE Deep Vein Thrombosis/Pulmonary Embolism Present on Admission: Yes Exam Vital signs: Vital Signs 01/06/18 19:58 01/06/18 20:00 01/07/18 00:00 Temperature 98.7 F 97.2 F L Pulse Rate 82 76 68 Respiratory Rate 16 12 14 Blood Pressure 158/69 H Pulse Oximetry 94 L 96 01/07/18 01:36 01/07/18 04:00 01/07/18 08:23 Temperature 97.4 F L Pulse Rate 82 83 Respiratory Rate 12 26 H 16 Blood Pressure 128/72 Pulse Oximetry 96 98 Intake & Output 01/06/18 01/07/18 01/07/18 18:59 06:59 18:59 Intake Total 360 / 360 3360 / 3360 Output Total 1325 / 1325 3625 / 3625 Balance -965 / -965 -265 / -265 Weight 59.9 kg 59.9 kg Intake: Oral 360 / 360 360 / 360 Anesthesia Amount 3000 / 3000 Output: Urine 2300 / 2300 Stool 0 / 0 0 / 0 Urine Amount (Catheter) 1300 / 1300 1300 / 1300 Indwelling Urethral Catheter 1300 / 1300 1300 / 1300 Wound Drainage Back SHUN Drain Other: Date of Last Bowel Movement 01/03/18 01/03/18 # Bowel Movements 0 Results Procedures completed during hospitalization: ORIF fracture Labs on day of discharge: Labs from last 24 hours 01/07/18 01/07/18 01/04/18 03:03 03:03 11:03 WBC 11.2 H RBC 3.65 L Hgb 11.2 L Hct 32.8 L MCV 89.7 MCH 30.5 MCHC 34.0 RDW 14.4 Plt Count 132 L MPV 8.7 Neut % (Auto) 85.4 H Lymph % (Auto) 4.6 L [place] % (Auto) 9.8 H Eos % (Auto) 0.1 Baso % (Auto) 0.1 Neut # (Auto) 9.5 H Lymph # (Auto) 0.5 L [place] # (Auto) 1.1 H Eos # (Auto) 0.0 Baso # (Auto) 0.0 WBC Differential . Differential Comment Auto diff final Sodium 143 Potassium 3.7 Chloride 108 H Carbon Dioxide 27.1 Anion Gap 8 BUN 14 Creatinine 1.46 H Estimated GFR 35 L Random Glucose 91 Calcium 7.8 L D Phosphorus 1.6 L Magnesium 2.2 MTS Gel Crossmatch See Detail - Impressions ITS Impressions Thoracic Spine X-Ray 01/04/18 00:00 CONCLUSION: Extensive fusion hardware extending from T4 through T8 in good position. Chest X-Ray 01/06/18 00:00 CONCLUSION: Left basilar consolidation. <Odell Dela Cruz - Last Filed: 01/12/18 18:58> Date of admission: 01/04/18 05:57 Primary care physician: Young Swanson DO DS: Summary - Time Spent with Patient Total time spent providing and/or coordinating discharge services: Results - Impressions ITS Impressions Thoracic Spine X-Ray 01/04/18 00:00 CONCLUSION: Extensive fusion hardware extending from T4 through T8 in good position. Chest X-Ray 01/06/18 00:00 CONCLUSION: Left basilar consolidation. Discharge Plan - Discharge Order Discharge Orders: Discharge Order (Routine); Ordered 01/07/18 Ordered By: Colleen Mie - Physicians Team Primary Care Provider: Young Swanson Attending Provider: Odell Dela Cruz Other Providers: Young Swanson DO ; Primo Fallon MD - Rxs /Orders / Referrals /Forms Prescriptions: No Action amlodipine 2.5 mg Tablet 2.5 mg PO BID carvedilol 12.5 mg Tablet 12.5 mg PO BID cholecalciferol (vitamin D3) [Vitamin D3] 1,000 unit Capsule 1,000 unit PO BID nivolumab [Opdivo] 40 mg/4 mL Solution 1 mg/kg IV DIRECTED thyroid (pork) [Lottie Thyroid] 30 mg Tablet 60 mg PO DAILY tramadol 50 mg Tablet 50 mg PO Q4-6H PRN (Reason: Pain) Referrals: Young Swanson DO [Primary Care Provider] - See Instructions
--- NOTE | 2018-01-07 20:39 | P.PNFP ---
Subjective Interval history: pt seen this am doing well has been accepted into [facility] Results - Labs Result diagrams: 01/07/18 03:03 01/07/18 03:03 Abnormal lab results 01/04/18 01/07/18 01/07/18 Range/Units 11:03 03:03 03:03 WBC 11.2 H (4.0-11.0) th/mm3 RBC 3.65 L (4.00-5.30) mil/mm3 Hgb 11.2 L (11.6-15.3) gm/dL Hct 32.8 L (35.0-46.0) % Plt Count 132 L (150-450) th/mm3 Neut % (Auto) 85.4 H (16.0-70.0) % Lymph % (Auto) 4.6 L (9.0-44.0) % [place] % (Auto) 9.8 H (0.0-8.0) % Neut # (Auto) 9.5 H (1.8-7.7) th/mm3 Lymph # (Auto) 0.5 L (1.0-4.8) th/mm3 [place] # (Auto) 1.1 H (0.0-0.9) th/mm3 Chloride 108 H (98-107) meq/L Creatinine 1.46 H (0.50-1.00) mg/dL Estimated GFR 35 L (>89) mL/min Calcium 7.8 L D (8.5-10.1) mg/dL Phosphorus 1.6 L (2.5-4.9) mg/dL MTS Gel Crossmatch See Detail Short CBC 01/07/18 Range/Units 03:03 WBC 11.2 H (4.0-11.0) th/mm3 Hgb 11.2 L (11.6-15.3) gm/dL Hct 32.8 L (35.0-46.0) % Plt Count 132 L (150-450) th/mm3 BMP 01/07/18 03:03 Sodium 143 Potassium 3.7 Chloride 108 H Carbon Dioxide 27.1 BUN 14 Creatinine 1.46 H Calcium 7.8 L D Physical Exam Vital signs: Vital Signs 01/07/18 00:00 01/07/18 01:36 01/07/18 04:00 Temperature 97.2 F L 97.4 F L Pulse Rate 68 82 Respiratory Rate 14 12 26 H Blood Pressure 128/72 Pulse Oximetry 96 96 01/07/18 08:00 01/07/18 08:23 01/07/18 12:00 Temperature 97.8 F 96.7 F L Pulse Rate 78 83 82 Respiratory Rate 10 L 16 18 Blood Pressure 158/72 H 111/82 Pulse Oximetry 97 98 97 01/07/18 16:00 Temperature 99.0 F Pulse Rate Respiratory Rate Blood Pressure Pulse Oximetry Intake & Output 01/07/18 01/07/18 01/08/18 06:59 18:59 06:59 Intake Total 3360 / 3360 500 / 500 Output Total 3625 / 3625 30 30 Balance -265 / -265 470 / 470 Weight 59.9 kg Intake: Oral 360 / 360 500 / 500 Anesthesia Amount 3000 / 3000 Output: Urine 2300 / 2300 Stool 0 / 0 Urine Amount (Catheter) 1300 / 1300 Indwelling Urethral Catheter 1300 / 1300 Wound Drainage Back SHUN Drain Other: # Voids 3 # Incontinent Voids 0 Date of Last Bowel Movement 01/03/18 01/03/18 # Bowel Movements 0 0 - Constitutional no acute distress - Routine HEENT Exam Head: Present: normocephalic, atraumatic Eye: Present: EOMI, PERRL - Routine Neck Exam Present: supple - Routine Respiratory Exam Present: decreased breath sounds Comments: healing t spine incision - Routine Cardiovascular Exam Present: RRR - Routine Abdominal Exam Present: soft, normoactive bowel sounds - Urinary Catheter Management Straight Cath placed during this visit: yes, but has since been removed by the nurse Reason for continuing: Not indwelling catheter Insertion date: 01/04/18 Insertion time: 07:27 Removal date: 01/04/18 Removal time: 07:29 Indwelling Urethral Catheter Cath placed during this visit: yes, but has since been removed by the nurse Reason for continuing: Hourly intake/output Insertion date: 01/04/18 Insertion time: 09:15 Removal date: 01/06/18 Removal time: 15:00 Assessment and Plan - Assessment (1) H/O spinal fusion Code(s): Z98.1 - Arthrodesis status Status: Acute (2) Infiltrate noted on imaging study Code(s): R93.8 - Abnormal findings on diagnostic imaging of other specified body structures Status: Acute Plan: pt on vanco and cefazolin will change albuterol to scheduled and follow cxr closely 01/06 breathing well will repeat cxr in am - Assessment and Plan asses cxr dc plan to [facility] Discharge Planning: agree with dc to [facility]
[2018-01-13] MEDS ORDERED: Metoprolol Inj 5 MG/5 ML Vial ONE (17:27)
[2018-02-13] MEDS ORDERED: NIVOLUMAB IV.PUSH SCH (18:00)
== END 2018-01-07 17:04 ==
LOC: HSDI 05:57 → EDSTATUS 08:30 → N03 17:03
PROVIDERS: ADMIT Neurological Surgery; ATTEND Neurological Surgery